=== PATIENT | male | born 1970 | race Caucasian/White ===

== ENCOUNTER 2017-01-01 15:07 | Inpatient (IN) | payer OTHER ==
[2017-01-01] MEDS ORDERED: SODIUM CHLORIDE 1,000 ML IV SCH ×2 (15:30→19:30)
--- NOTE | 2017-01-01 15:35 | PDOC ---
History of Present Illness - General History Source: Patient Exam Limitations: No Limitations - History of Present Illness Initial Comments: 01/01/17 15:43 The patient is a 46 year old male with history of hypertension, atrial fibrillation s/p b/l renal infarct in February 2016, not on anticoagluants, brought in by EMS for complete right side numbness (head, r arm, r leg) and decreased visual field that began at approximately 2 PM. The patient reports he has only a narrow field of vision, able to see directly in front of him but limited on either side of his visual field. He states his numbness is improved on ED arrival. The patient denies any headache, dizziness or focal weakness. He denies nausea, vomiting, or diaphoresis. The patient was seen immediately by me on ED arrival. Seen by Dr. Pham of cardiology in the past. <Christine Barron - Last Filed: 01/01/17 17:57> <Mookie Argueta - Last Filed: 01/05/17 14:31> - General Chief Complaint: CVA/TIA Stated Complaint: NUMBNESS Time Seen by Provider: 01/01/17 15:29 Past History <Christine Barron - Last Filed: 01/01/17 17:57> - Past Medical History Anemia: No Asthma: No Cancer: No Cardiac Disorders: Yes (A FIB) CVA: No COPD: No CHF: No Dementia: No Diabetes: No GI Disorders: No Disorders: No HTN: No Hypercholesterolemia: Yes Liver Disease: No Seizures: No Thyroid Disease: No - Psycho/Social/Smoking Cessation Hx Anxiety: No Suicidal Ideation: No Smoking History: Never smoked Hx Alcohol Use: Yes Drug/Substance Use Hx: No Substance Use Type: Alcohol Hx Substance Use Treatment: No <Mookie Argueta - Last Filed: 01/05/17 14:31> - Past Medical History Allergies/Adverse Reactions: Allergies Allergy/AdvReac Type Severity Reaction Status Date / Time No Known Allergies Allergy Verified 01/01/17 15:10 Home Medications: Ambulatory Orders Enoxaparin Sodium [Lovenox] 120 mg SQ HS #7 syringe 01/05/17 Lovastatin 20 mg PO DAILY #30 tablet 01/05/17 Metoprolol Succinate [Toprol XL -] 200 mg PO DAILY #30 tab.sr.24h 01/05/17 Warfarin Na [Coumadin -] 2.5 mg PO DAILY@1800 #30 tablet 01/05/17 Review of Systems - Review of Systems Able to Perform ROS?: Yes Comments:: 01/01/17 15:57 GENERAL/CONSTITUTIONAL: No fever or chills. No weakness. HEAD, EYES, EARS, NOSE AND THROAT: Visual changes (narrow visual field). No ear pain or discharge. No sore throat CARDIOVASCULAR: No chest pain or shortness of breath. RESPIRATORY: No cough, wheezing, or hemoptysis. GASTROINTESTINAL: No nausea, vomiting, diarrhea or constipation. GENITOURINARY: No dysuria, frequency, or change in urination. MUSCULOSKELETAL: No joint or muscle swelling or pain. No neck or back pain. SKIN: No rash NEUROLOGIC: R numbness (face, arm, leg). No headache, vertigo, loss of consciousness, or focal weakness. ENDOCRINE: No increased thirst. No abnormal weight change. HEMATOLOGIC/LYMPHATIC: No anemia, easy bleeding, or history of blood clots. ALLERGIC/IMMUNOLOGIC: No hives or skin allergy. ] <Christine Barron - Last Filed: 01/01/17 17:57> *Physical Exam - Vital Signs Last Vital Signs Temp Pulse Resp BP Pulse Ox 98.7 F 60 20 160/108 100 01/01/17 15:10 01/01/17 15:10 01/01/17 15:10 01/01/17 15:10 01/01/17 15:10 - Physical Exam Comments: 01/01/17 16:03 GENERAL: Awake, alert, and fully oriented, in no acute distress HEAD: No signs of trauma EYES: PERRLA, EOMI, sclera anicteric, conjunctiva clear ENT: Auricles normal inspection, hearing grossly normal, nares patent, oropharynx clear without exudates. Moist mucosa NECK: Normal ROM, supple, no lymphadenopathy, JVD, or masses LUNGS: Breath sounds equal, clear to auscultation bilaterally. No wheezes, and no crackles HEART: Regular rate and rhythm, normal S1 and S2, no murmurs, rubs or gallops ABDOMEN: Soft, nontender, normoactive bowel sounds. No guarding, no rebound. No masses EXTREMITIES: Normal range of motion, no edema. No clubbing or cyanosis. No cords, erythema, or tenderness NEUROLOGICAL: Cranial nerves II through XII grossly intact. Normal speech, normal gait. Able to answer questions correctly. No nystagmus. No pronator drift. 5/5 motor strength x 4 extremities. Sensation throughout. SKIN: Warm, Dry, normal turgor, no rashes or lesions noted. <Christine Barron - Last Filed: 01/01/17 17:57> - Vital Signs Last Vital Signs Temp Pulse Resp BP Pulse Ox 98.7 F 60 20 160/108 100 01/01/17 15:10 01/01/17 15:10 01/01/17 15:10 01/01/17 15:10 01/01/17 15:10 <Mookie Argueta - Last Filed: 01/05/17 14:31> NIH Stroke Scale - Last Known Well Date/Time & Onset Date Last Known Well: 01/01/17 Time Last Known Well: 14:00 - Initial Evaluation Level of consciousness: Alert Ask patient the month and their age: Answers both correctly Ask patient to open & close eyes; make fist and let go: Obeys both correctly Best gaze (horizontal eye movement): Normal Visual field testing: Complete hemianopia Facial paresis (Show teeth/raise eyebrows/close eyes tight): Normal symmetrical movement Motor Function: Left Arm: Normal Motor Function: Right Arm: Normal (extends arm 90 (or 45) degrees for 10 seconds without drift Motor Function: Left Leg: Normal (extends leg 30 degrees for 5 seconds without drift) Motor Function: Right Leg: Normal (extends leg 30 degrees for 5 seconds without drift) Limb Ataxia: No ataxia Sensory(Use pinprick test arms,legs,trunk,face/side to side): Normal Best language (Describe picture, name items, read sentences): No Aphasia Dysarthria (read several words): Normal articulation Extinction and Inattention: No abnormality - Total Score NIH Stroke Scale Score: 2 <Mookie Argueta - Last Filed: 01/05/17 14:31> Heart Score/ECG Review #1 01/01/17 16:17 EKG obtained 15:19. Atrial fibrillation with rapid ventricular response with premature ventricular or aberrantly conducted complexes. Vent rate 118 bpm. Nonspecific T wave abnormality. Abnormal EKG. <Christine Barron - Last Filed: 01/01/17 17:57> Critical Care Time/MDM Note Total Critical Care Time: 60 Critical Care Statement: The care of this patient involved high complexity decision making to prevent further life threatening deterioration of the patient 's condition and/or to evalute & treat vital organ system(s) failure or risk of failure. - Medical Decision Making Note: 01/01/17 16:04 Code wooten activated. Case discussed with Dr. Dominguez of neurology, who recommended administering tPa. 01/01/17 16:06 I discussed tPa with the patient, including risks and benefits. I explained that there is a 6% risk of developing an intracranial bleed with tPa. He communicates understanding and elects to proceed. 01/01/17 16:[address], read and reviewed by Dr. Velazco, demonstrates no discrete noncontrast CT abnormality. Negative exam. 01/01/17 17:55 Patient reassessed after starting tPa administration. The patient reports his left eye vision improved after beginning tPa, right visual changes persist. Patient also noted some gum bleeding. <Christine Barron - Last Filed: 01/01/17 17:57> - Medical Decision Making Note: 01/05/17 14:27 Patient was actually see by me on arrival. He spoke only Czech and we needed an sap portal developer to be able to complete the exam and the NIH Stroke Scale Testing. He went to CT after my exam. His NIH Stroke scale was low at 2, and he had rapidly resolving symptoms of Right Arm and Leg numbness. That had actually disappeared by the time the patient got to the ED. As recommendations for TPA are not really clear in this situation, the decision was made by neurology collection agent. We gave the TPA at her direction and the patient gave consent to me for the TPA through our sap portal developer. <Mookie Argueta - Last Filed: 01/05/17 14:31> Discharge Disposition <Christine Barron - Last Filed: 01/01/17 17:57> - Discharge Dispostion Last Admission D/C Date: 02/14/16 Admit: Yes <Mookie Argueta - Last Filed: 01/05/17 14:31> - Diagnosis CVA (cerebral vascular accident) Qualifiers: CVA mechanism: embolism Precerebral and cerebral artery: unspecified cerebral artery Qualified Code(s): I63.40 - Cerebral infarction due to embolism of unspecified cerebral artery - Discharge Dispostion Condition at time of disposition: Stable - Prescriptions - Referrals Attestations - Attestations 01/01/17 16:17 Documentation prepared by Christine Barron, acting as medical esthetician for Mookie Argueta DO. <Christine Barron - Last Filed: 01/01/17 17:57> ED Treatment Course - LABORATORY CBC & Chemistry Diagram: 01/01/17 15:36 01/01/17 15:36 - ADDITIONAL ORDERS Additional order review: Laboratory Results 01/01/17 01/01/17 01/01/17 15:36 15:36 15:13 Sodium 145 Potassium 3.9 Chloride 110 H Carbon Dioxide 24 Anion Gap 11 BUN 16 Creatinine 0.8 D Creat Clearance w eGFR > 60 POC Glucometer 129.25222 Random Glucose 111 H D Calcium 8.5 Total Bilirubin 0.3 D AST 29 D ALT 58 Alkaline Phosphatase 87 Creatine Kinase 252 Troponin I 0.08 H Total Protein 7.4 Albumin 3.9 Triglycerides 174 H D Cholesterol 214 H Total LDL Cholesterol 150 H HDL Cholesterol 50 Urine Color Colorless Urine Appearance Clear Urine pH 6.0 Ur Specific [place] 1.004 Urine Protein Negative Urine Glucose (UA) Negative Urine Ketones Negative Urine Blood Negative Urine Nitrite Negative Urine Bilirubin Negative Urine Urobilinogen Negative Ur Leukocyte Esterase Negative 01/01/17 01/01/17 15:36 15:13 RBC 4.77 MCV 90.2 MCHC 33.2 RDW 13.8 MPV 9.1 Neutrophils % 46.5 Lymphocytes % 36.5 D Monocytes % 11.4 H Eosinophils % 4.6 H Basophils % 1.0 POC Glucometer [id number] <Christine Barron - Last Filed: 01/01/17 17:57> - LABORATORY CBC & Chemistry Diagram: 01/05/17 05:35 01/05/17 05:35 <Mookei Argueta - Last Filed: 01/05/17 14:31>
[2017-01-01 15:49] LABS: EOSINOPHIL 4.6 % (0-4.5); MCHC 33.2 g/dl (32.0-35.9); MEAN CELL VOLUME 90.2 fl (80-96); MEAN PLT VOLUME 9.1 fl (7.5-11.1); NEUTROPHILS 46.5 % (42.8-82.8); PLATELET COUNT 198 K/MM3 (134-434); RDW 13.8 % (11.9-15.9); WHITE BLOOD COUNT 6.1 K/mm3 (4.0-10.0)
[2017-01-01 15:52] LABS: URINE APPEARANCE CLEAR; URINE BILIRUBIN NEGATIVE (NEGATIVE); URINE BLOOD NEGATIVE (NEGATIVE); URINE COLOR COLORLESS; URINE GLUCOSE (UA) NEGATIVE (NEGATIVE); URINE KETONE NEGATIVE (NEGATIVE); URINE LEUK ESTERASE NEGATIVE (NEGATIVE); URINE NITRITE NEGATIVE (NEGATIVE); URINE PROTEIN NEGATIVE (NEGATIVE); URINE UROBILINOGEN NEGATIVE E.U./dl (0.2-1.0)
[2017-01-01 16:02] LABS: INR 1.04 (0.82-1.09); PROTHROMBIN TIME (PATIENT) 11.5 SEC (9.98-11.88)
[2017-01-01] MEDS ORDERED: ALTEPLASE 100 MG VIAL IVPB STA (16:07)
[2017-01-01] MEDS ORDERED: ALTEPLASE 100MG 100 MG IVPB ONE (16:09)
[2017-01-01 16:16] LABS: ALBUMIN 3.9 g/dl (3.4-5.0); ALK PHOS 87 U/L (45-117); ANION GAP 11 (8-16); BILIRUBIN,TOTAL 0.3 mg/dL (0.2-1.0); CALCIUM 8.5 mg/dL (8.5-10.1); CHOLESTEROL 214 mg/dL (50-200); CO2 24 mmol/L (21-32); CREATININE 0.8 mg/dL (0.7-1.3); GLUCOSE,RANDOM 111 mg/dL (74-106); LDL CHOLESTEROL (ONLY SJRH) 150 mg/dL (5-100); SGOT/AST 29 U/L (15-37); SGPT/ALT 58 U/L (12-78); TOT PROT 7.4 g/dl (6.4-8.2); TROPONIN I 0.08 ng/ml (0.00-0.05)
--- NOTE | 2017-01-01 16:46 | CONSULT ---
Consult Consult Specialty:: Neurology Reason for Consultation:: Right side numbness/ vision loss - History of Present Illness History of Present Illness: 46 year old [place] man, history of atrial fibrillation (off coumadin), hypertension, hyperlipidemia, presents to the ED with acute onset of right side numbness and bitemporal vision loss. He is accompanied by his . The patient states at 2 pm noting acute onset of right side numbness and bitemporal vision loss. Shortly after he presented his sensory symptoms resolved but visual symptoms persisted. He denies currently being maintained on any antiplatelet, or anticoagulation, patient was previously on coumadin but stopped coumadin months ago. He denies recent surgery, GI bleed, recent stroke. CT head in ED showed no acute hemorrhage NIHSS 2- vision field loss - Past Medical History Cardio/Vascular: Yes: Hyperlipdemia - Past Surgical History Past Surgical History: Yes: None - Alcohol/Substance Use Hx Alcohol Use: Yes - Smoking History Smoking history: Never smoked Home Medications - Allergies Allergies/Adverse Reactions: Allergies Allergy/AdvReac Type Severity Reaction Status Date / Time No Known Allergies Allergy Verified 01/01/17 15:10 - Home Medications Home Medications: Ambulatory Orders Metoprolol Succinate [Toprol Xl -] 25 mg PO DAILY 01/01/17 Review of Systems - Review of Systems Constitutional: reports: No Symptoms Eyes: reports: Recent Change in Vision HENT: reports: No Symptoms Cardiovascular: reports: No Symptoms Respiratory: reports: No Symptoms Musculoskeletal: reports: No Symptoms Neurological: reports: Numbness Physical Exam Vital Signs: Vital Signs Temperature 98.6 F 01/01/17 16:33 Pulse Rate 103 H 01/01/17 16:33 Respiratory Rate 18 01/01/17 16:33 Blood Pressure 137/99 01/01/17 16:33 O2 Sat by Pulse Oximetry (%) 97 01/01/17 16:33 Constitutional: Yes: No Distress Eyes: Yes: Conjunctiva Clear, EOM Intact HENT: Yes: Atraumatic, Normocephalic Cardiovascular: Yes: S1, S2 Neurological: Yes: Alert, Oriented ...Motor Strength: WNL (no facial droop, EOMI, bitemporal vision loss) Labs: CBC, BMP 01/01/17 15:36 01/01/17 15:36 Assessment/Plan 46 year old [place] man, history of atrial fibrillation (off coumadin), hypertension, presents to the ED with acute onset of right side numbness and bitemporal vision loss. He is accompanied by his . Bitemporal vision loss, right side numbness NIHSS [address] head no acute abnormality Risks and benefits of IV tpa discussed- discussed risk of hemorrhage, patient understanding and would like to proceed with tpa He denies being maintained on antiplatelets or anticoagulation, INR 1.[address] head 24 hours (01/02 4pm) Vitals- every 15 minutes during infusion, post infusion every 15 min x2 hours, then every 30 min x6 hours, then every 1 hr every 24 hours, then every 2 hours while in ICU Blood pressure- keep systolic bp less than 180, diastolic less than 110 MRI brain without contrast Echocardiogram Carotid doppler Speech and swallow eval Bed rest for now- PT/OT eval NO antiplatelets or heparin for 24 hours post TPA LDL 150- will start atorvastatin 80 mg daily, hga1c Admit to ICU for close monitoring
[2017-01-01] MEDS ORDERED: dilTIAZem HCL 30 MG TABLET (FP) ONE (17:48)
[2017-01-01] MEDS ORDERED: ATORVASTATIN CA 80 MG TABLET (FP) ONE (17:48)
[2017-01-01] MEDS ORDERED: dilTIAZem HCL 30 MG TABLET (FP) PO ONE (17:50)
[2017-01-01] MEDS: ATORVASTATIN CA 80 MG TABLET (FP) PO SCH (17:50)
--- NOTE | 2017-01-01 18:51 | PN ---
Teaching Attending Note Name of Resident: Ramona Winston ATTENDING PHYSICIAN STATEMENT I saw and evaluated the patient. I reviewed the resident's note and discussed the case with the resident. I agree with the resident's findings and plan as documented. SUBJECTIVE:46 yo M c/o sudden tunnel vision at 1400 today while eating lunch. assoc with R sided numnbness/weakness which resolved by the time he arrived at the hospital. states he continues to have tunnel vision. as per pt was previously on coumadin but stopped last year due to bleeding gums. had 2 failed cardioversions in the past per pt. currently only on betablocker. was not told anything about antiplatlet therapy. denies CP, SOB, fever, chills, N/V/C/D OBJECTIVE: Last Vital Signs Temp Pulse Resp BP Pulse Ox 97.7 F 104 H 21 153/101 95 01/01/17 18:34 01/01/17 18:34 01/01/17 18:34 01/01/17 18:34 01/01/17 18:34 General NAD CV S1 S2 irregular. no murmur/rub/gallop no chest wall tenderness Lungs CTA B/L no wheezing/rales/rhonchi abdomen soft NT/ND obese extremites no pedal edema Neuro visual deficit in B/L temporal lobes, other CN grossly intact, strength equal all 4 extremities ASSESSMENT AND PLAN: 46yo M with PMH afib not on coumadin, dyslipidemia presented to the ER and was admitted for further evaluation of their emergent condition 1. Acute CVA- NIHSS 2. s/p TPA in the ER and 1615. frequent neurochecks, no fingersticks or blood draws for the next 24H. MRI brain in the AM. carotid doppler. continuous cardiac monitoring. neuro on board. any change in mental status will warrant emergent CT. maintain BP <180/110. hold oral hypotensives for now. start statin. speech and swallow, PT eval. elevate head of bed aspiration precautions. 2. afib- not on anticoagulation due to bleeding gums? will call PMD if alternate reason why it was held. pt is high risk for recurrent CVA. would benefit from anticaogulation. 3. DVT ppx- s/p TPA In the ER The care of this patient involved high complexity decision making to prevent further life threatening deterioration of the patient's condition and/or to evaluate & treat vital organ system(s) failure or risk of failure. critical care time 40 minutes
[2017-01-01 18:57] VITALS: BMI 29.4
--- NOTE | 2017-01-01 19:11 | HP ---
CHIEF COMPLAINT: PCP: Seen by Dr. Pham of cardiology in the past. HISTORY OF PRESENT ILLNESS: 46YM with significant PMH history of smoking, hypertension, HLD, atrial Uncontrolled A fib/A flutter cardioversion failed x2, started on amiodarone, verapamil, Coumadin,asa, currently has not taken any of the medication other than Metoprolol, s/p b/l renal infarct in February 2016, not on anticoagluants, brought in by EMS for complete right side numbness (head, r arm, r leg) and decreased visual field that began at approximately 2 PM. patient reports sitting down and eating seafood and a glass of wine while suddenly, progressive tunnel vision bilateral eyes, and Right side of body numbness. no Exacerbating/ alleviating factors. no focal weakness, speech changes, blurred or double vision vision, , fevers, vomiting, no recent trauma. The patient denies any headache, dizziness or focal weakness. To note: patient reports all his medications including asa and Coumadin discontinued by his PCP for gum bleeding and his INR was 13. the only medication he is currently on is metoprolol To note: His HR at home is normally 40's to 180's ER course was notable for: (1)He denies nausea, vomiting, or diaphoresis. The patient was seen immediately by me on ED arrival. He states his numbness is improved on ED arrival. (2)Neuro consulted and Given TPA. 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 Alcohol: 2-5 beers daily 3 times a week Drugs: denies Family History: Allergies No Known Allergies Allergy (Verified 01/01/17 15:10) HOME MEDICATIONS: Home Medications Medication Instructions Recorded Metoprolol Succinate [Toprol Xl -] 25 mg PO DAILY 01/01/17 REVIEW OF SYSTEMS CONSTITUTIONAL: Absent: fever, chills, diaphoresis, generalized weakness, malaise, loss of appetite, weight change HEENT: visual changes Absent: rhinorrhea, nasal congestion, throat pain, throat swelling, difficulty swallowing, mouth swelling, ear pain, eye pain, CARDIOVASCULAR: Absent: chest pain, syncope, palpitations, irregular heart rate, lightheadedness , peripheral edema RESPIRATORY: Absent: cough, shortness of breath, dyspnea with exertion, orthopnea, wheezing, stridor, hemoptysis GASTROINTESTINAL: Absent: abdominal pain, abdominal distension, nausea, vomiting, diarrhea, constipation, melena, hematochezia GENITOURINARY: Absent: dysuria, frequency, urgency, hesitancy, hematuria, flank pain, genital pain MUSCULOSKELETAL: Absent: myalgia, arthralgia, joint swelling, back pain, neck pain SKIN: Absent: rash, itching, pallor HEMATOLOGIC/IMMUNOLOGIC: Absent: easy bleeding, easy bruising, lymphadenopathy, frequent infections ENDOCRINE: Absent: unexplained weight gain, unexplained weight loss, heat intolerance, cold intolerance NEUROLOGIC: Absent: headache, focal weakness or paresthesias, dizziness, unsteady gait, seizure, mental status changes, bladder or bowel incontinence PSYCHIATRIC: Absent: anxiety, depression, suicidal or homicidal ideation, hallucinations. PHYSICAL EXAMINATION Vital Signs - 24 hr 01/01/17 01/01/17 01/01/17 15:10 16:10 16:15 Temperature 98.7 F 98.6 F Pulse Rate 60 112 H Pulse Rate [ 130 H Apical] Respiratory 20 18 18 Rate Blood Pressure 160/108 137/79 Blood Pressure 150/99 [Right Arm] O2 Sat by Pulse 100 100 100 Oximetry (%) 01/01/17 01/01/17 01/01/17 16:20 16:25 16:30 Temperature 98.6 F 98.6 F 98.6 F Pulse Rate Pulse Rate [ 120 H 100 H 103 H Apical] Respiratory 18 18 18 Rate Blood Pressure Blood Pressure 154/98 149/92 137/99 [Right Arm] O2 Sat by Pulse 100 100 97 Oximetry (%) 01/01/17 01/01/17 01/01/17 16:45 16:59 17:15 Temperature 98.6 F 98.6 F Pulse Rate Pulse Rate [ 103 H 100 H 126 H Apical] Respiratory 18 18 18 Rate Blood Pressure Blood Pressure 151/101 136/85 130/79 [Right Arm] O2 Sat by Pulse 100 100 100 Oximetry (%) 01/01/17 01/01/17 17:42 18:07 Temperature Pulse Rate Pulse Rate [ 127 H 117 H Apical] Respiratory 18 18 Rate Blood Pressure Blood Pressure 146/87 139/78 [Right Arm] O2 Sat by Pulse 99 100 Oximetry (%) GENERAL: Awake, alert, and fully oriented, in no acute distress. HEAD: Normal with no signs of trauma. EYES: Pupils R>L equal, round and reactive to light, extraocular movements intact, sclera anicteric, conjunctiva clear. No lid lag. bitemporal vision loss ) EARS, NOSE, THROAT: Ears normal, nares patent, oropharynx clear without exudates. Moist mucous membranes. NECK: Normal range of motion, supple without lymphadenopathy, JVD, or masses. LUNGS: Breath sounds equal, clear to auscultation bilaterally. No wheezes, and + LLL crackles. No accessory muscle use. HEART: irregular irregular , normal S1 and S2 without murmur, rub or gallop. ABDOMEN: Soft, nontender, not distended, normoactive bowel sounds, no guarding, no rebound, no masses. No hepatomegaly or splenomegaly. MUSCULOSKELETAL: Normal range of motion at all joints. No bony deformities or tenderness. No CVA tenderness. LOWER EXTREMITIES: 2+ pulses, warm, well-perfused. No calf tenderness. No peripheral edema. NEUROLOGICAL: Cranial nerves II-XII intact. Normal speech. (no facial droop, EOMI), strength 5/5 all ext, neg [place], soft touch sensation equal, PSYCHIATRIC: Cooperative. Good eye contact. Appropriate mood and affect. SKIN: Warm, dry, normal turgor, no rashes or lesions noted. Laboratory Results - last 24 hr 01/01/17 01/01/17 01/01/17 15:13 15:36 15:36 WBC 6.1 RBC 4.77 Hgb 14.3 Hct 43.0 MCV 90.2 MCHC 33.2 RDW 13.8 Plt Count 198 D MPV 9.1 Neutrophils % 46.5 Lymphocytes % 36.5 D Monocytes % 11.4 H Eosinophils % 4.6 H Basophils % 1.0 INR 1.04 D Sodium Potassium Chloride Carbon Dioxide Anion Gap BUN Creatinine Creat Clearance w eGFR POC Glucometer [id number] Random Glucose Calcium Total Bilirubin AST ALT Alkaline Phosphatase Creatine Kinase Creatine Kinase Index CK-MB (CK-2) CK-MB (CK-2) Rel Index Troponin I Total Protein Albumin Triglycerides Cholesterol Total LDL Cholesterol HDL Cholesterol Urine Color Urine Appearance Urine pH Ur Specific Widen Urine Protein Urine Glucose (UA) Urine Ketones Urine Blood Urine Nitrite Urine Bilirubin Urine Urobilinogen Ur Leukocyte Esterase Blood Type Antibody Screen 01/01/17 01/01/17 01/01/17 15:36 15:36 15:36 WBC RBC Hgb Hct MCV MCHC RDW Plt Count MPV Neutrophils % Lymphocytes % Monocytes % Eosinophils % Basophils % INR Sodium 145 Potassium 3.9 Chloride 110 H Carbon Dioxide 24 Anion Gap 11 BUN 16 Creatinine 0.8 D Creat Clearance w eGFR > 60 POC Glucometer Random Glucose 111 H D Calcium 8.5 Total Bilirubin 0.3 D AST 29 D ALT 58 Alkaline Phosphatase 87 Creatine Kinase 252 Creatine Kinase Index 0.6 CK-MB (CK-2) 1.608 CK-MB (CK-2) Rel Index Troponin I 0.08 H Total Protein 7.4 Albumin 3.9 Triglycerides 174 H D Cholesterol 214 H Total LDL Cholesterol 150 H HDL Cholesterol 50 Urine Color Colorless Urine Appearance Clear Urine pH 6.0 Ur Specific Widen 1.004 Urine Protein Negative Urine Glucose (UA) Negative Urine Ketones Negative Urine Blood Negative Urine Nitrite Negative Urine Bilirubin Negative Urine Urobilinogen Negative Ur Leukocyte Esterase Negative Blood Type A POSITIVE Antibody Screen Negative 01/01/17 15:36 WBC RBC Hgb Hct MCV MCHC RDW Plt Count MPV Neutrophils % Lymphocytes % Monocytes % Eosinophils % Basophils % INR Sodium Potassium Chloride Carbon Dioxide Anion Gap BUN Creatinine Creat Clearance w eGFR POC Glucometer Random Glucose Calcium Total Bilirubin AST ALT Alkaline Phosphatase Creatine Kinase Creatine Kinase Index CK-MB (CK-2) CK-MB (CK-2) Rel Index Cancelled Troponin I Total Protein Albumin Triglycerides Cholesterol Total LDL Cholesterol HDL Cholesterol Urine Color Urine Appearance Urine pH Ur Specific Widen Urine Protein Urine Glucose (UA) Urine Ketones Urine Blood Urine Nitrite Urine Bilirubin Urine Urobilinogen Ur Leukocyte Esterase Blood Type Antibody Screen CT head in ED showed no acute hemorrhage NIHSS 2- vision field loss ASSESSMENT/PLAN: 46YM with significant PMH history of smoking, hypertension, HLD, atrial Uncontrolled A fib/A flutter cardioversion failed x2, started off of (coumadin and asa) brought in by EMS for complete right side numbness (head, r arm, r leg ) and bitemporal vision loss.began at approximately 2 PM. s/p IV tpa discussed Bitemporal vision loss, right side numbness, possibly secondary to embolic stroke, CT head no acute abnormality -NIHSS 2 for vision field loss -IV tpa given (4:15pm) -CT head 24 hours (01/02 4pm) -neuro check q1h for 24 hours. -VS check Q1H: any change in mental status, sudden onset KERN, focal neurlogical deficit will warrant emergent CT and neuro surgery consulted. -Blood pressure- keep systolic bp less than 180, diastolic less than 110 -MRI brain without contrast -Echocardiogram ordered -Carotid doppler ordered -Speech and swallow eval -Bed rest for now- PT/OT eval tomorrow -NO antiplatelets or heparin for 24 hours post TPA -No needle stick or lab draws for at lease 24 hours AFIB: on home Metoprolol Succinate [Toprol Xl -] 25 mg PO DAILY not currently on anticoagulation and ASA patient is at high risk for another CVA/TIA, will consider paln of anicoag once we attain more information from PCP and patient stable eccho am HLD:LDL 150- -start atorvastatin 80 mg daily, DM: -f/u hga1c FEN nutrition na diet pending swallow eval, aspiration precautions. fluids NS IV 42cc/hr electrolyte replete as needed once it is safe to draw labs. DVT prof: SCD, NO sub Q heparin Admit to ICU for close monitoring Visit type - Emergency Visit Emergency Visit: Yes ED Registration Date: 01/01/17 Care time: The patient presented to the Emergency Department on the above date and was hospitalized for further evaluation of their emergent condition. - New Patient This patient is new to me today: Yes Date on this admission: 01/01/17 - Critical Care Critical Care patient: Yes Total Critical Care Time (in minutes): 45 Critical Care Statement: The care of this patient involved high complexity decision making to prevent further life threatening deterioration of the patient 's condition and/or to evalute & treat vital organ system(s) failure or risk of failure.
--- NOTE | 2017-01-01 20:31 | CONSULT ---
Consult Consult Specialty:: Pulm/CC - History of Present Illness History of Present Illness: Pt is a 46yr old man with PMHx of HTN, cardiac arrhythmia (presumably a-fib, not on a/c), . He presents to the ER today with CC of vision loss, the second time in approximately two weeks. Pt denies associated numbess/tingling/limb weakness, chest pain/headache/fatigue/n/v. Pt endorses associated heart palpitations. Pt now in the ICU s/p tpa ~1600 on 01/01 for further management. Upon assessment pt is alert, talkative without focal deficits. 126/109, 99% on 2LNC, HR 70s irregular RR 22. - History Source History Provided By: Patient, Medical Record Limitations to Obtaining History: No Limitations - Past Medical History Cardio/Vascular: Yes: Hyperlipdemia - Past Surgical History Past Surgical History: Yes: None - Alcohol/Substance Use Hx Alcohol Use: Yes - Smoking History Smoking history: Never smoked Have you smoked in the past 12 months: No Home Medications - Allergies Allergies/Adverse Reactions: Allergies Allergy/AdvReac Type Severity Reaction Status Date / Time No Known Allergies Allergy Verified 01/01/17 15:10 - Home Medications Home Medications: Ambulatory Orders Metoprolol Succinate [Toprol Xl -] 25 mg PO DAILY 01/01/17 Review of Systems - Review of Systems Eyes: reports: Recent Change in Vision Cardiovascular: reports: Palpitations. denies: Chest Pain, Edema, Shortness of Breath Respiratory: denies: Cough, SOB Gastrointestinal: denies: Abdominal Pain, Diarrhea Genitourinary: denies: Dysuria Neurological: denies: Dizziness, Headache, Numbness Physical Exam Vital Signs: Vital Signs Period Temp Pulse Resp BP Sys/Grayson Pulse Ox Last 24 Hr 97.7 F-98.7 F 60-130 18-22 130-162/78-108 95-100 Intake & Output 12/29/16 12/30/16 12/31/16 01/01/17 23:59 23:59 23:59 23:59 Output Total 950 Balance -950 Weight 187 lb 12.8 oz Constitutional: Yes: Well Nourished, No Distress, Calm Eyes: Yes: WNL, PERRL HENT: Yes: WNL Neck: Yes: WNL Cardiovascular: Yes: Pulse Irregular (70s), S1, S2 Respiratory: Yes: Diminished (at bases bilaterally), On Nasal O2. No: Rhonchi, SOB, Wheezes Gastrointestinal: Yes: Normal Bowel Sounds, Soft, Abdomen, Obese ...Rectal Exam: Yes: Deferred Renal/: Yes: Other (denies dysuria). No: CVA Tenderness - Left, CVA Tenderness - Right Musculoskeletal: Yes: WNL Extremities: Yes: WNL Edema: No Peripheral Pulses WNL: Yes (+2 bilateral pedal pulses) Neurological: Yes: WNL Psychiatric: Yes: WNL Labs: Abnormal Lab Results 01/01/17 01/01/17 15:36 15:36 Monocytes % 11.4 H Eosinophils % 4.6 H Chloride 110 H Random Glucose 111 H D Troponin I 0.08 H Triglycerides 174 H D Cholesterol 214 H Total LDL Cholesterol 150 H Imaging - Results Chest X-ray: Image Reviewed Cat Scan: Report Reviewed Assessment/Plan Pt is a 46yr old man with PMHx of HTN, cardiac arrhythmia (presumably a-fib, not on a/c). Now in the ICU s/p tPA after acute vision changes. Pulm: -O2 support prn for sat >94% -Incentive spirometer ID -f/u flu swab -Monitor off antibiotics for now Neuro -Neuro following -Neuro checks -f/u head CT at 1600 on 01/02, head MRI, carotid doppler Cardio -Consult -BP/rate control (SBP <180, DBP <110) -f/u enzymes -Continue statin -f/u ECHO Renal -Replete electrolytes prn Prophylactic -Bleeding precautions -SCDs -Fall precautions
[2017-01-01 21:35] LABS: MAGNESIUM 2.1 mg/dL (1.8-2.4); PHOSPHOROUS 3.3 mg/dL (2.5-4.9)
[2017-01-01 21:37] LABS: TROPONIN I 0.08 ng/ml (0.00-0.05)
[2017-01-01] MEDS ORDERED: LISINOPRIL 5 MG TABLET (FP) PO ONE (22:05)
[2017-01-02] MEDS ORDERED: METOPROLOL TARTRATE 25 MG TABLET (FP) PO PRN (00:46)
[2017-01-02 06:03] LABS: BASOPHIL 0.4 % (0-2.0); EOSINOPHIL 3.3 % (0-4.5); MCH 30.2 pg (25.7-33.7); MCHC 33.8 g/dl (32.0-35.9); MEAN CELL VOLUME 89.4 fl (80-96); MEAN PLT VOLUME 9.2 fl (7.5-11.1); NEUTROPHILS 55.9 % (42.8-82.8); PLATELET COUNT 224 K/MM3 (134-434); RDW 14.1 % (11.9-15.9); WHITE BLOOD COUNT 7.4 K/mm3 (4.0-10.0)
[2017-01-02 06:20] LABS: INR 1.14 (0.82-1.09); PROTHROMBIN TIME (PATIENT) 12.6 SEC (9.98-11.88)
[2017-01-02 06:23] LABS: ACTIVATED PTT 31.6 SECONDS (26.9-34.4)
[2017-01-02 06:30] LABS: ALBUMIN 3.7 g/dl (3.4-5.0); ANION GAP 8 (8-16); CALCIUM 8.8 mg/dL (8.5-10.1); CO2 28 mmol/L (21-32); GLUCOSE,RANDOM 86 mg/dL (74-106); MAGNESIUM 2.2 mg/dL (1.8-2.4)
[2017-01-02 06:35] LABS: ALK PHOS 80 U/L (45-117); BILIRUBIN,TOTAL 0.6 mg/dL (0.2-1.0); PHOSPHOROUS 3.4 mg/dL (2.5-4.9); SGOT/AST 20 U/L (15-37); SGPT/ALT 51 U/L (12-78); TOT PROT 7.3 g/dl (6.4-8.2)
[2017-01-02] MEDS ORDERED: METOPROLOL SUCCINATE 25 MG TAB.SR.24H (FP) PO SCH (10:00)
--- NOTE | 2017-01-02 10:00 | CONSULT ---
Admitting History and Physical - Primary Care Physician PCP: Diana Card - Admission History of Present Illness: Per EMR: "46YM with significant PMH history of smoking, hypertension, HLD, atrial Uncontrolled A fib/A flutter cardioversion failed x2, started off of ( coumadin and asa) brought in by EMS for complete right side numbness (head, r arm, r leg) and bitemporal vision loss.began at approximately 2 PM. s/p IV tpa " Denies speech/swallow symptoms or ue/le weakness. Isolated visual deficits that improved after TPA. History Source: Patient Limitations to Obtaining History: No Limitations, Language Barrier (Fair Tajik and used audio/video technician as well.) - Past Medical History Cardiovascular: Yes: Hyperlipdemia - Past Surgical History Past Surgical History: Yes: None - Smoking History Smoking history: Never smoked Have you smoked in the past 12 months: No - Alcohol/Substance Use Hx Alcohol Use: Yes History - Admission Reason For Visit: CVA - Diagnostics CT Scan: Report Reviewed MRI: Pending - General Mental Status: Alert and Oriented, Awake and Alert, Able to Follow Commands Attention: Intact Ability to Follow Directions: Excellent Head/Neck Control: WFL - Hearing Hearing: Normal Hearing Aide: No With Patient: No Speech Evaluation - Communication Primary Language: [id number] Communication: Yes: Within Normal Limits Oral Expression Ability: Yes: No Impairment - Speech Production Able to Make Needs Known: Yes: WNL Intelligibility: Yes: WNL - Speech Characteristics Voice Loudness: Normal Voice Pitch: Yes: Normal Voice Phonatory-based Quality: Yes: Normal Speech Pattern: Normal Speech Clarity: < 100% Nasal Resonance: Normal Articulation: Yes: Precise Rate of Speech: Intact - Language/Auditory Comprehension Follows: Yes: 2 Stage Simple Commands - Language/Verbal Expression Able to Respond to Simple Queries: Yes: WNL Able to Communicate Wants and Needs: Yes: WNL Functional Communication Status: Yes: WNL - Memory/Perception buttermaker helper Memory: Yes: WNL Short Term Memory: Yes: WNL - Swallow Evaluation/Bedside Assessment Current Nutritional Intake: NPO (however, drinking water from a straw in pitcher.) Oral Secretions: Yes: WFL Dentition: Yes: Adequate Facial Symmetry at Rest: Symmetrical Facial Symmetry on Retraction: Symmetrical Facial Movement: Controlled Sensation: Normal Against Resistance Opening: Normal Against Resistance Closing: Normal Pucker Lips: Normal Smile: Normal Lingual Movement: Normal Lingual Speed of Movement: Normal Lingual Movement Strgth Against Opposition: Normal Lingual Movement Characteristics: Normal Velopharyngeal Movement: Normal Laryngeal Elevation: WFL Laryngeal Movement: Able to Palpate Rate of Intake: WFL Bolus Size: WFL Labial Seal: WFL Chewing: WFL Oral Prep Time: WFL A-P Transit: WFL Pocketing: None Coughing/Throat Clear: No Change in Voice: No Recommendations - Speech Evaluation, Impression/Plan Impression: Speech,swallow, cognition intact - Dysphagia Impressions/Plan Swallowing Skills: [facility] Dysphagia Impressions: No Impairment *Silent aspiration: cannot be R/O at bedside - Recommendations Diet Consistency: Regular Medication Administration: Whole with water Liquids: Thin Liquids
--- NOTE | 2017-01-02 11:46 | PN ---
Teaching Attending Note Name of Resident: Casper Sultana ATTENDING PHYSICIAN STATEMENT I saw and evaluated the patient. I reviewed the resident's note and discussed the case with the resident. I agree with the resident's findings and plan as documented. SUBJECTIVE: Patient seen and examined in the ICU. Awake and alert. Neuro exam seems intact. Rate controlled AFIb. No CP or SOB No bleeding. For MRI Intake & Output 12/30/16 12/31/16 01/01/17 01/02/17 23:59 23:59 23:59 23:59 Intake Total 250 200 Output Total 1750 600 Balance -1500 -400 Weight 187 lb 12.8 oz 185 lb 5 oz Last Vital Signs Temp Pulse Resp BP Pulse Ox 98 F 80 21 136/86 100 01/02/17 06:00 01/02/17 08:00 01/02/17 08:00 01/02/17 08:00 01/01/17 21:50 Active Medications Atorvastatin Calcium (Lipitor -) 80 mg PO HS [facility] Last Admin: 01/01/17 17:50 Dose: 80 mg Metoprolol Succinate (Toprol Xl -) 25 mg PO DAILY [facility] Last Admin: 01/02/17 11:14 Dose: 25 mg Constitutional: Yes: Well Nourished, No Distress, Calm Eyes: Yes: WNL, PERRL HENT: Yes: WNL Neck: Yes: WNL Cardiovascular: Yes: Pulse Irregular (70s), S1, S2 Respiratory: Yes: Diminished (at bases bilaterally), On Nasal O2. No: Rhonchi, SOB, Wheezes Gastrointestinal: Yes: Normal Bowel Sounds, Soft, Abdomen, Obese ...Rectal Exam: Yes: Deferred Renal/: Yes: Other (denies dysuria). No: CVA Tenderness - Left, CVA Tenderness - Right Musculoskeletal: Yes: WNL Extremities: Yes: WNL Edema: No Peripheral Pulses WNL: Yes (+2 bilateral pedal pulses) Neurological: Yes: WNL Psychiatric: Yes: WNL Labs: Assessment/Plan Acute CVA AFib recently not on AC HTN S/P tPA BP monitoring Cardiology / Neuro evaluation Incentive spirometer O2 as needed Carotid doppler MRI Telemetry monitoring Dr Roy CCTime 35"
--- NOTE | 2017-01-02 11:47 | PN ---
Teaching Attending Note Name of Resident: Ramona Winston ATTENDING PHYSICIAN STATEMENT I saw and evaluated the patient. I reviewed the resident's note and discussed the case with the resident. I agree with the resident's findings and plan as documented. SUBJECTIVE:states his vision has improved. hap episode of palpitations in the evening that self resolved. denies CP, SOB,fever, chills, N/V/C/D. no longer has R sided numbness. OBJECTIVE: Last Vital Signs Temp Pulse Resp BP Pulse Ox 98 F 80 21 136/86 100 01/02/17 06:00 01/02/17 08:00 01/02/17 08:00 01/02/17 08:00 01/01/17 21:50 General NAD CV S1 S2 irregular. no murmur/rub/gallop Lungs CTA B/L no wheezing/rales/rhonchi abdomen soft NT/ND obese extremites no pedal edema Neuro visual deficit in B/L temporal lobes, other CN grossly intact, strength and sensation equal all 4 extremities, normal dysmetria ASSESSMENT AND PLAN: 46yo M with PMH afib not on coumadin, dyslipidemia presented to the ER and was admitted for further evaluation of their emergent condition 1. Acute CVA- NIHSS 2. s/p TPA yesterday. improvement in visual dougherty. no other deficits. MRI brain, echo and carotid dopplers pending. speech and swallow and PT. eval. bedrest for 24H. on statin. neuro on board 2. afib- not on anticoagulation due to bleeding gums? rate mostly controlled. several episodes of RVR in the evening. will re-start metoprolol. will need to call PMD to ascertain if other reason coumadin was held. pt requires some anticoagulation due to high risks. [id number] 2. hold for now 3. DVT ppx- s/p TPA In the ER 4. stable for transfer to tele after 24H of TPA The care of this patient involved high complexity decision making to prevent further life threatening deterioration of the patient's condition and/or to evaluate & treat vital organ system(s) failure or risk of failure. critical care time 35 minutes
--- NOTE | 2017-01-02 12:24 | EKG ---
Test Reason : Blood Pressure : / mmHG Vent. Rate : 118 BPM Atrial Rate : 416 BPM P-R Int : 000 ms QRS Dur : 084 ms QT Int : 296 ms P-R-T Axes : 000 003 -06 degrees QTc Int : 414 ms ATRIAL FIBRILLATION WITH RAPID VENTRICULAR RESPONSE WITH PREMATURE VENTRICULAR OR ABERRANTLY CONDUCTED COMPLEXES NONSPECIFIC T WAVE ABNORMALITY ABNORMAL ECG WHEN COMPARED WITH ECG OF 07-FEB-2016 17:44, ATRIAL FIBRILLATION HAS REPLACED ATRIAL FLUTTER PREMATURE VENTRICULAR COMPLEXES NOW SEEN Confirmed by CHARLEEN BHAKTA MD ([id number]) on 01/02/2017 12:24:22 PM Referred By: Confirmed By:CHARLEEN BHAKTA MD
[2017-01-02] MEDS ORDERED: METOPROLOL TARTRATE 5 MG/5 ML VIAL ONE (13:10)
[2017-01-02] MEDS: METOPROLOL TARTRATE 5 MG/5 ML VIAL IVPUSH PRN ×3 (13:17→23:29)
--- NOTE | 2017-01-02 13:17 | PN ---
[id number] 46 year old tamazight speaking male patient, history of atrial fibrillation (off coumadin), hypertension, hyperlipidemia, presented yesterday to the ED with acute onset of right side numbness and bitemporal vision loss. The patient complained of acute onset of right side numbness and bitemporal vision loss. Shortly after he presented his sensory symptoms resolved but visual symptoms persisted. He denies currently being maintained on any antiplatelet, or anticoagulation. 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 On Xarelto the patient presented gum bleedings and Xarelto was stopped also. Since February 2016 he is not on asa, plavix, coumadin or NOAC. He denies recent surgery, GI bleed, recent stroke. - Current Medication List Current Medications: Active Medications Atorvastatin Calcium (Lipitor -) 80 mg PO HS [facility] Last Admin: 01/01/17 17:50 Dose: 80 mg Metoprolol Succinate (Toprol Xl -) 25 mg PO DAILY [facility] Last Admin: 01/02/17 11:14 Dose: 25 mg Metoprolol Tartrate (Lopressor Injection -) 5 mg IVPUSH Q4H PRN PRN Reason: HYPERTENSION - Objective Vital Signs: Vital Signs Temperature 99.2 F 01/02/17 10:00 Pulse Rate 110 H 01/02/17 12:00 Respiratory Rate 15 01/02/17 12:00 Blood Pressure 141/84 01/02/17 12:00 O2 Sat by Pulse Oximetry (%) 100 01/01/17 21:50 Constitutional: Yes: Well Nourished, No Distress, Calm Eyes: Yes: WNL, Conjunctiva Clear, EOM Intact, PERRL HENT: Yes: WNL, Atraumatic, Normocephalic Neck: Yes: WNL, Supple, Trachea Midline Cardiovascular: Yes: WNL, Regular Rate and Rhythm, Tachycardia, Pulse Irregular , S1, S2 Respiratory: Yes: Regular, CTA Bilaterally Gastrointestinal: Yes: Normal Bowel Sounds, Soft Genitourinary: Yes: WNL Breast(s): Yes: WNL Musculoskeletal: Yes: WNL Extremities: Yes: WNL Edema: No Peripheral Pulses WNL: Yes Peripheral Pulses: Left Radial: 1+, Right Radial: 1+ Neurological: Yes: Alert, Oriented, Babinski negative, Cran Nerves II-XII Intact , Other (left temporal superior visual field cut. NIHS is 1p. for VF cut.) ...Motor Strength: WNL Psychiatric: Yes: WNL, Alert, Oriented Labs: CBC, BMP 01/02/17 05:00 01/02/17 05:00 INR, PTT INR 1.14 (0.82-1.09) 01/02/17 05:00 Problem List - Problems (1) Visual field defect Code(s): H53.40 - UNSPECIFIED VISUAL FIELD DEFECTS (2) CVA (cerebral vascular accident) Code(s): I63.9 - CEREBRAL INFARCTION, UNSPECIFIED Qualifiers: CVA mechanism: embolism Precerebral and cerebral artery: unspecified cerebral artery Qualified Code(s): I63.40 - Cerebral infarction due to embolism of unspecified cerebral artery (3) Atrial fibrillation Code(s): I48.91 - UNSPECIFIED ATRIAL FIBRILLATION Qualifiers: Atrial fibrillation type: persistent Qualified Code(s): I48.1 - Persistent atrial fibrillation Assessment/Plan 46 year old man, history of atrial fibrillation (off coumadin), hypertension, hyperlipidemia, presented yesterday to the ED with acute onset of right side numbness and bitemporal vision loss. The patient complained of acute onset of right side numbness and bitemporal vision loss. Shortly after he presented his sensory symptoms resolved but visual symptoms persisted. He denies currently being maintained on any antiplatelet, or anticoagulation. 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 On Xarelto the patient presented gum bleedings and Xarelto was stopped also. Since February 2016 he is not on asa, plavix, coumadin or NOAC. He denies recent surgery, GI bleed, recent stroke. 46y. male patient, tamazight speaking with pmh. AF not on on AC, not on ASA, not on Plavix presents for sudden right side numbness and visual field cut. He received tpa iv. yesterday. Impression acute ischemic stroke, most likely embolic , due to AFibrillation. post ivtpa. NIHS is 1p. for 1p visual field cut. left. Plan: - cardiology consult for AFIB. - this patient needs to be on NOAC or coumadin if MRI brain shows acute embolic stroke. It is not very clear from the history why he was not on asa and plavix at least . - continues statin, beta orion , SBP under 130mmHg. -stroke work up : doppler carotids, MRI brain, echocardiogram, lipids profile, HbA1C. - DVT prophylaxis- heparin sq. - PT/OT/ST - will follow up Critical Care Time spent in ICU 45min.
--- NOTE | 2017-01-02 15:49 | PN ---
Physical Exam: SUBJECTIVE: Patient seen and examined at bedside in the ICU. He reported feeling better and regained all his strength on the R ride which was the weak side on admission. Vision also came back. He denies n/v, fever, chills, chest pain, sob, abd pain, facial droop, sensation decrease, focal weakness, bowel or urinary sx. OBJECTIVE: Vital Signs Period Temp Pulse Resp BP Sys/Grayson Pulse Ox Last 24 Hr 97.7 F-99.2 F 68-117 15-27 111-162/66-110 95-100 GENERAL: The patient is awake, alert, and fully oriented, in no acute distress. HEAD: Normal with no signs of trauma. EYES: PERRLA LUNGS: Breath sounds equal, clear to auscultation bilaterally, no wheezes, no crackles, no accessory muscle use. HEART: Regular rate and rhythm, S1, S2 without murmur, rub or gallop. ABDOMEN: Soft, nontender, nondistended, normoactive bowel sounds, no guarding, no rebound, no hepatosplenomegaly, no masses. EXTREMITIES: no edema. NEUROLOGICAL: Cranial nerves II through XII grossly intact. Normal speech. 5/5 Strength in all extremities with intact sensation PSYCH: Normal mood, normal affect. SKIN: Warm, dry, normal turgor, no rashes or lesions noted CBCD WBC 7.4 K/mm3 (4.0-10.0) 01/02/17 05:00 RBC 5.10 M/mm3 (4.00-5.60) 01/02/17 05:00 Hgb 15.4 GM/dL (11.7-16.9) 01/02/17 05:00 Hct 45.6 % (35.4-49) 01/02/17 05:00 MCV 89.4 fl (80-96) 01/02/17 05:00 MCHC 33.8 g/dl (32.0-35.9) 01/02/17 05:00 RDW 14.1 % (11.9-15.9) 01/02/17 05:00 Plt Count 224 K/MM3 (134-434) 01/02/17 05:00 MPV 9.2 fl (7.5-11.1) 01/02/17 05:00 CMP Sodium 144 mmol/L (136-145) 01/02/17 05:00 Potassium 3.7 mmol/L (3.5-5.1) 01/02/17 05:00 Chloride 108 mmol/L (98-107) H 01/02/17 05:00 Carbon Dioxide 28 mmol/L (21-32) 01/02/17 05:00 Anion Gap 8 (8-16) 01/02/17 05:00 BUN 15 mg/dL (7-18) 01/02/17 05:00 Creatinine 1.0 mg/dL (0.7-1.3) D 01/02/17 05:00 Creat Clearance w eGFR > 60 (>60) 01/02/17 05:00 Calcium 8.8 mg/dL (8.5-10.1) 01/02/17 05:00 Total Bilirubin 0.6 mg/dL (0.2-1.0) D 01/02/17 05:00 AST 20 U/L (15-37) D 01/02/17 05:00 ALT 51 U/L (12-78) 01/02/17 05:00 Alkaline Phosphatase 80 U/L (45-117) 01/02/17 05:00 Total Protein 7.3 g/dl (6.4-8.2) 01/02/17 05:00 Albumin 3.7 g/dl (3.4-5.0) 01/02/17 05:00 Intake & Output 12/30/16 12/31/16 01/01/17 01/02/17 23:59 23:59 23:59 23:59 Intake Total 250 600 Output Total 1750 600 Balance -1500 0 Weight 85.185 kg 84.056 kg Active Medications Generic Name Dose Route Start Last Admin Trade Name Freq PRN Reason Stop Dose Admin Atorvastatin Calcium 80 mg 01/01/17 17:30 01/01/17 17:50 Lipitor - PO 80 mg HS DELFINA Administration Metoprolol Succinate 25 mg 01/02/17 10:00 01/02/17 11:14 Toprol Xl - PO 25 mg DAILY DELFINA Administration Metoprolol Tartrate 5 mg 01/02/17 13:08 01/02/17 13:17 Lopressor Injection - IVPUSH 5 mg Q4H PRN Administration HYPERTENSION Imaging ECHO on 01/02: reduced LV function, EF 52% CXR on 01/01: No acute pathology CT head: negative for bleed ASSESSMENT/PLAN: 46 yo M h/o HTN, a-fib not currently on AC admitted to the ICU for TIA s/p tPA. Pt was on AC for afib but came off it due to INR being supratherapuetic and gum bleeding about 8 months ago. Neuro: TIA s/p tPA - f/u MRI and repeat CT, carotid doppler - No sign of bleed - Keep HOB 30-45% - LDL not at goal - Cont. atorvastatin 80mg HS Cardiac: Afib with controlled rate - [id number] = 2 - On lopressor 25mg PO - long term acute care registered nurse AC held due to supratherapuetic INR FEN - Fluid not indicated - Lytes normal - Sodium controlled regular diet Prophylaxis - DVT: s/p tPA - GI: not indicated Disposition - May transfer to telemetry Code Status - Full Visit type - Emergency Visit Emergency Visit: No - New Patient This patient is new to me today: Yes Date on this admission: 01/02/17 - Critical Care Critical Care patient: Yes Total Critical Care Time (in minutes): 45 Critical Care Statement: The care of this patient involved high complexity decision making to prevent further life threatening deterioration of the patient 's condition and/or to evalute & treat vital organ system(s) failure or risk of failure.
--- NOTE | 2017-01-02 16:10 | PN ---
Physical Exam: SUBJECTIVE: Patient seen and examined at bed side. patient denies any focal neurological deficit. patient Right side numness resolved. patient temporal vision improving. reports cvisual acuity decreased when reading. on physical exam improved visual filed, still decreased Left LUQ acuity. OBJECTIVE: Vital Signs Period Temp Pulse Resp BP Sys/Grayson Pulse Ox Last 24 Hr 97.7 F-99.2 F 68-117 15-27 111-162/66-110 95-100 Yes: Alert, Oriented, Babinski negative, Cran Nerves II-XII Intact, Other (left temporal superior visual field cut. NIHS is 1p. for VF cut. GENERAL: Awake, alert, and fully oriented, in no acute distress. HEAD: Normal with no signs of trauma. EYES: Pupils equal, round and reactive to light, extraocular movements intact, sclera anicteric, conjunctiva clear. No lid lag. bitemporal vision loss) EARS, NOSE, THROAT: Ears normal, nares patent, oropharynx clear without exudates. Moist mucous membranes. NECK: Normal range of motion, supple without lymphadenopathy, JVD, or masses. LUNGS: Breath sounds equal, clear to auscultation bilaterally. No wheezes, and + LLL crackles. No accessory muscle use. HEART: irregular irregular , normal S1 and S2 without murmur, rub or gallop. ABDOMEN: Soft, nontender, not distended, normoactive bowel sounds, no guarding, no rebound, no masses. No hepatomegaly or splenomegaly. MUSCULOSKELETAL: Normal range of motion at all joints. No bony deformities or tenderness. No CVA tenderness. LOWER EXTREMITIES: 2+ pulses, warm, well-perfused. No calf tenderness. No peripheral edema. NEUROLOGICAL: Cranial nerves II-XII intact. Normal speech. (no facial droop, EOMI), strength 5/5 all ext, neg babinski, soft touch sensation equal, decreased Left LUQ visual field. PSYCHIATRIC: Cooperative. Good eye contact. Appropriate mood and affect. SKIN: Warm, dry, normal turgor, no rashes or lesions noted. Laboratory Results - last 24 hr 01/01/17 01/01/17 01/02/17 21:00 21:00 05:00 WBC 7.4 RBC 5.10 Hgb 15.4 Hct 45.6 MCV 89.4 MCHC 33.8 RDW 14.1 Plt Count 224 MPV 9.2 Neutrophils % 55.9 D Lymphocytes % 29.8 Monocytes % 10.6 H Eosinophils % 3.3 Basophils % 0.4 INR PTT (Actin FS) Sodium Potassium Chloride Carbon Dioxide Anion Gap BUN Creatinine Creat Clearance w eGFR Random Glucose Calcium Phosphorus 3.3 D Magnesium 2.1 Total Bilirubin AST ALT Alkaline Phosphatase Creatine Kinase 232 CK-MB (CK-2) Rel Index Cancelled Troponin I 0.08 H Total Protein Albumin 01/02/17 01/02/17 05:00 05:00 WBC RBC Hgb Hct MCV MCHC RDW Plt Count MPV Neutrophils % Lymphocytes % Monocytes % Eosinophils % Basophils % INR 1.14 PTT (Actin FS) 31.6 D Sodium 144 Potassium 3.7 Chloride 108 H Carbon Dioxide 28 Anion Gap 8 BUN 15 Creatinine 1.0 D Creat Clearance w eGFR > 60 Random Glucose 86 D Calcium 8.8 Phosphorus 3.4 Magnesium 2.2 Total Bilirubin 0.6 D AST 20 D ALT 51 Alkaline Phosphatase 80 Creatine Kinase CK-MB (CK-2) Rel Index Troponin I Total Protein 7.3 Albumin 3.7 Active Medications Generic Name Dose Route Start Last Admin Trade Name Freq PRN Reason Stop Dose Admin Atorvastatin Calcium 80 mg 01/01/17 17:30 01/01/17 17:50 Lipitor - PO 80 mg HS DELFINA Administration Metoprolol Succinate 25 mg 01/02/17 10:00 01/02/17 11:14 Toprol Xl - PO 25 mg DAILY DELFINA Administration Metoprolol Tartrate 5 mg 01/02/17 13:08 01/02/17 13:17 Lopressor Injection - IVPUSH 5 mg Q4H PRN Administration HYPERTENSION CT HEAD In comparison to a prior CT study of 01/01/2017 interval development of an acute left posterior temporal cortical infarct inferiorly and an acute right parieto- occipital cortical/subcortical infarct. There is no midline displacement. No extra-axial fluid collection is seen. There is no obvious mass lesion. The ventricles and cisterns appear unremarkable. Impression: No intracranial hemorrhage is identified. Acute left posterior temporal and right parieto- occipital infarct are seen. ASSESSMENT/PLAN: 46YM with significant PMH history of smoking, hypertension, HLD, atrial Uncontrolled A fib/A flutter cardioversion failed x2, started off of (coumadin and asa) brought in by EMS for complete right side numbness (head, r arm, r leg ) and bitemporal vision loss.began at approximately 2 PM. s/p IV tpa Bitemporal vision loss improving to LEFT eye Left LUQ Quadrantanopia , right side (numbness resolved), possibly secondary to embolic stroke, repeat CT: Acute left posterior temporal and right parieto-occipital infarct are seen. -CT: No intracranial hemorrhage is identified. Acute left posterior temporal and right parieto-occipital infarct are seen. -awaiting MRI -awaiting carotid Doppler -NIHSS 1 for vision field loss -IV tpa given ~24 hours ago -neuro check q2h -VS check Q4H: any change in mental status, sudden onset KERN, focal neurlogical deficit will warrant emergent CT and neuro surgery consulted. -Blood pressure- keep systolic bp less than 180, diastolic less than 110 -Echocardiogram no valvular pathology -Speech and swallow eval-done: no impairment -Bed rest for now- PT/OT eval -discussed with Neuro attending and she recomends starting Lovenox after 24 hours if no sign of bleed. discussed case with Dr. al she agred to start ASA and lovenox. CT No intracranial hemorrhage is identified. Acute left posterior temporal and right parieto-occipital infarct are seen. - will start ASA and Lovenox AFIB: [id number] = 2 Metoprolol as above start asa + lovenox eccho no valvular pathology. will rate control concerned with aggressive tight bp control inlight of recent CVA, will reassess HR in am. HLD:LDL 150- -cont atorvastatin 80 mg daily, DM: -f/u hga1c FEN nutrition na diet pending swallow eval, aspiration precautions. fluids NS IV 42cc/hr electrolyte replete as needed once it is safe to draw labs. - PT/OT/ST DVT prof: SCD, lovenox Keep HOB 30-45% despo: transfer to tele Visit type - Emergency Visit Emergency Visit: Yes ED Registration Date: 01/01/17 Care time: The patient presented to the Emergency Department on the above date and was hospitalized for further evaluation of their emergent condition. - New Patient This patient is new to me today: No - Critical Care Critical Care patient: Yes Total Critical Care Time (in minutes): 45 Critical Care Statement: The care of this patient involved high complexity decision making to prevent further life threatening deterioration of the patient 's condition and/or to evalute & treat vital organ system(s) failure or risk of failure.
[2017-01-02] MEDS ORDERED: ASPIRIN COATED 81 MG TABLET.EC PO SCH (19:00)
[2017-01-02] MEDS: ENOXAPARIN NA (PORCINE) 80 MG/0.8 ML DISP.SYRIN SQ SCH ×2 (22:02→22:03)
[2017-01-02] MEDS: ATORVASTATIN CA 80 MG TABLET (FP) PO SCH (22:02)
[2017-01-02] MEDS ORDERED: METOPROLOL TARTRATE 25 MG TABLET (FP) PO ONE (23:32)
[2017-01-03 02:04] LABS: URINE APPEARANCE CLEAR; URINE BILIRUBIN NEGATIVE (NEGATIVE); URINE BLOOD NEGATIVE (NEGATIVE); URINE COLOR LTYELLOW; URINE GLUCOSE (UA) NEGATIVE (NEGATIVE); URINE KETONE NEGATIVE (NEGATIVE); URINE LEUK ESTERASE NEGATIVE (NEGATIVE); URINE NITRITE NEGATIVE (NEGATIVE); URINE PROTEIN NEGATIVE (NEGATIVE); URINE UROBILINOGEN NEGATIVE E.U./dl (0.2-1.0)
[2017-01-03 02:27] LABS: CALCIUM 9.6 mg/dL (8.5-10.1); MAGNESIUM 2.1 mg/dL (1.8-2.4); PHOSPHOROUS 3.8 mg/dL (2.5-4.9)
[2017-01-03 02:30] LABS: TROPONIN I 0.08 ng/ml (0.00-0.05)
[2017-01-03] MEDS ORDERED: POTASSIUM CHLORIDE 40 MEQ/30 ML UNIT DOSE CUP PO ONE (03:46)
[2017-01-03] MEDS ORDERED: POTASSIUM CHLORIDE TABS 20 MEQ TABLET.ER (FP) PO ONE (03:49)
[2017-01-03 06:14] LABS: BASOPHIL 0.7 % (0-2.0); EOSINOPHIL 2.4 % (0-4.5); MCHC 33.7 g/dl (32.0-35.9); MEAN CELL VOLUME 89.2 fl (80-96); MEAN PLT VOLUME 9.4 fl (7.5-11.1); NEUTROPHILS 53.7 % (42.8-82.8); PLATELET COUNT 242 K/MM3 (134-434); RDW 13.8 % (11.9-15.9); WHITE BLOOD COUNT 8.5 K/mm3 (4.0-10.0)
[2017-01-03 06:26] LABS: CALCIUM 9.1 mg/dL (8.5-10.1); CREATININE 1.1 mg/dL (0.7-1.3); PHOSPHOROUS 3.4 mg/dL (2.5-4.9)
[2017-01-03 06:27] LABS: INR 1.24 (0.82-1.09); PROTHROMBIN TIME (PATIENT) 13.7 SEC (9.98-11.88)
[2017-01-03 06:30] LABS: ACTIVATED PTT 39.6 SECONDS (26.9-34.4)
[2017-01-03 06:38] LABS: TROPONIN I 0.07 ng/ml (0.00-0.05)
--- NOTE | 2017-01-03 07:28 | PN ---
<KimDimas carpenter - Last Filed: 01/03/17 16:59> Physical Exam: ATTENDING PHYSICIAN STATEMENT I saw and evaluated the patient. I reviewed the resident's note and discussed the case with the resident. I agree with the resident's findings and plan as documented. 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 admitted for acute B/L CVA CVA -has known history of afib with B/L renal infarcts -was on coumadin in the past but states that coumadin was stopped by fine arts packer when INR was found to be greater than 10 last year -MRI shows B/L infarcts -peripheral vision is improving bilaterally -echo shows no vegetations and no thrombus; will discuss with cardiology if patient would benefit from UCHE as echo had poor windows and this is now the second embolization pt has suffered from -start coumadin with lovenox bridge -cont statin -cont betablocker for rate control of afib <Ramona Winston - Last Filed: 01/05/17 19:00> Physical Exam: SUBJECTIVE: Patient seen and examined at bed side. patient denies any focal neurological deficit. patient temporal vision improving. patient Right side numness resolved. on neuro exam improving visual filed, improving Left LUQ acuity. OBJECTIVE: Vital Signs Period Temp Pulse Resp BP Sys/Grayson Pulse Ox Last 24 Hr 98 F-99.2 F 70-135 15-27 91-141/63-98 100-100 GENERAL: Awake, alert, and fully oriented, in no acute distress. HEAD: Normal with no signs of trauma. EYES: Pupils equal, round and reactive to light, extraocular movements intact, sclera anicteric, conjunctiva clear. No lid lag. bitemporal vision loss) EARS, NOSE, THROAT: Ears normal, nares patent, oropharynx clear without exudates. Moist mucous membranes. NECK: Normal range of motion, supple without lymphadenopathy, JVD, or masses. LUNGS: Breath sounds equal, clear to auscultation bilaterally. No wheezes, and + LLL crackles. No accessory muscle use. HEART: irregular irregular , normal S1 and S2 without murmur, rub or gallop. ABDOMEN: Soft, nontender, not distended, normoactive bowel sounds, no guarding, no rebound, no masses. No hepatomegaly or splenomegaly. MUSCULOSKELETAL: Normal range of motion at all joints. No bony deformities or tenderness. No CVA tenderness. LOWER EXTREMITIES: 2+ pulses, warm, well-perfused. No calf tenderness. No peripheral edema. NEUROLOGICAL: Cranial nerves II-XII intact. Normal speech. (no facial droop, EOMI), strength 5/5 all ext, neg babinski, soft touch sensation equal, decreased Left LUQ visual field improving from yesterday . gait normal, neg Romberg. PSYCHIATRIC: Cooperative. Good eye contact. Appropriate mood and affect. SKIN: Warm, dry, normal turgor, no rashes or lesions noted. Laboratory Results - last 24 hr 01/03/17 01/03/17 01/03/17 01:00 01:00 05:10 WBC RBC Hgb Hct MCV MCHC RDW Plt Count MPV Neutrophils % Lymphocytes % Monocytes % Eosinophils % Basophils % INR 1.24 H PTT (Actin FS) 39.6 H Sodium 140 Potassium 3.5 Chloride 106 Carbon Dioxide 25 Anion Gap 9 BUN 18 Creatinine 1.0 Random Glucose 88 Calcium 9.6 Phosphorus 3.8 Magnesium 2.1 Creatine Kinase 104 Troponin I 0.08 H Urine Color Ltyellow Urine Appearance Clear Urine pH 6.0 Ur Specific [place] 1.020 Urine Protein Negative Urine Glucose (UA) Negative Urine Ketones Negative Urine Blood Negative Urine Nitrite Negative Urine Bilirubin Negative Urine Urobilinogen Negative Ur Leukocyte Esterase Negative 01/03/17 01/03/17 01/03/17 05:10 05:10 05:10 WBC 8.5 RBC 5.29 Hgb 15.9 Hct 47.2 MCV 89.2 MCHC 33.7 RDW 13.8 Plt Count 242 MPV 9.4 Neutrophils % 53.7 Lymphocytes % 32.7 Monocytes % 10.5 H Eosinophils % 2.4 Basophils % 0.7 INR PTT (Actin FS) Sodium 142 Potassium 3.8 Chloride 106 Carbon Dioxide 27 Anion Gap 9 BUN 18 Creatinine 1.1 Random Glucose 79 Calcium 9.1 Phosphorus 3.4 Magnesium 2.0 Creatine Kinase 88 Troponin I 0.07 H Urine Color Urine Appearance Urine pH Ur Specific [place] Urine Protein Urine Glucose (UA) Urine Ketones Urine Blood Urine Nitrite Urine Bilirubin Urine Urobilinogen Ur Leukocyte Esterase Active Medications Generic Name Dose Route Start Last Admin Trade Name Luci PRN Reason Stop Dose Admin Aspirin 81 mg 01/02/17 19:00 01/02/17 22:02 Ecotrin - PO 81 mg DAILY DELFINA Administration Atorvastatin Calcium 80 mg 01/01/17 17:30 01/02/17 22:02 Lipitor - PO 80 mg HS DELFINA Administration Enoxaparin Sodium 80 mg 01/02/17 19:04 01/02/17 22:03 Lovenox - SQ Not Given BID [facility] Metoprolol Succinate 25 mg 01/02/17 10:00 01/02/17 11:14 Toprol Xl - PO 25 mg DAILY DELFINA Administration Metoprolol Tartrate 5 mg 01/02/17 13:08 01/02/17 23:29 Lopressor Injection - IVPUSH 5 mg Q4H PRN Administration HYPERTENSION Carotid Doppler mild atherosclerotic disease, no significant stenoses MRI:Acute nonhemorrhagic bilateral occipital/temporal cortical infarcts are seen medially. There is a separate left posterior temporal cortical infarct inferiorly. Small separate left occipital cortical infarcts are also noted. There is no extra-axial fluid collection. The ventricles, cisterns and craniocervical junction appear unremarkable. Signal void is seen within the intracranial vertebral and internal carotid arteries as well as the basilar artery consistent with vessel patency. IMPRESSION: Acute bilateral cerebral infarcts are noted as discussed. ASSESSMENT/PLAN: DC asa start coumadin 2.5 as patient history of elevated INR, consumption of alcohol, unknown diet and, otilia ASSESSMENT/PLAN: 46YM with significant PMH history of smoking, hypertension, HLD, atrial Uncontrolled A fib/A flutter cardioversion failed x2, started off of (coumadin and asa) brought in by EMS for complete right side numbness (head, r arm, r leg ) and bitemporal vision loss began at approximately 2 PM. s/p IV tpa Acute ischemic stroke, most likely embolic 2/2 AFibrillation. s/p TPA day 2: Bitemporal vision loss improving to LEFT eye Left LUQ Quadrantanopia , right side (numbness resolved) -<MRI Acute nonhemorrhagic bilateral occipital/temporal cortical infarcts are seen medially. There is a separate left posterior temporal cortical infarct inferiorly. Small separate left occipital cortical infarcts are also noted. -MRI brain : acute ischemic bilaterall stroke in the occipital lobes. -NIHS is 0 today. -SBP under 130mmHg. -carotid Doppler no acute pathology -neuro check q4h -Echocardiogram no valvular pathology -Speech and swallow eval-done: no impairment -Bed rest for now- PT/OT eval -continue Lovenox, and bridge with warfarin today 2.5mg -discontinue ASA -ordered hb A1C am -VS check Q4H: any change in mental status, sudden onset KERN, focal neurlogical deficit will warrant emergent CT and neuro surgery consulted. AFIB: [id number] = 2 Started today metoprolol tartrate 50 mg tid per cardiology attending. f/u HR and BP (pt denies HTN, but has had elevated levels on occasion during this admission). eccho no valvular pathology. stress MIBI 11/2016 report says no myocardial ischemia; normal LVEF. 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 dieticianconsult to educat nadine on coumadin diet. Alcohol cessation: educated the patient the importance of cessation of alcohol and how it may effect his Coumadin level in blood. Systolic CHF limited ECHO: ?low-normal vs mildly reduced LVEF.will repeat ECHO for LVEF once heart rate is stable Metoprolol started for HR and BP; --well consider starting ACEI stress MIBI 11/2016, LVEF was WNL HLD:LDL 150- -cont atorvastatin 80 mg daily, -will change to Lovastatin 20 mg qhs on discharge -Dietary changes and exercise will also be very important. 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 fluids NS IV 42cc/hr electrolyte replete as needed once it is safe to draw labs. - PT/OT/ST DVT prof: SCD, lovenox Keep HOB 30-45% despo: tele, control HR Visit type - Emergency Visit Emergency Visit: Yes ED Registration Date: 01/01/17 Care time: The patient presented to the Emergency Department on the above date and was hospitalized for further evaluation of their emergent condition. - New Patient This patient is new to me today: No - Critical Care Critical Care patient: No - Discharge Referral Referred to [facility] Med P.[facility] No
[2017-01-03] MEDS ORDERED: METOPROLOL TARTRATE 5 MG/5 ML VIAL IVPUSH PRN (07:42)
[2017-01-03] MEDS ORDERED: ASPIRIN COATED 81 MG TABLET.EC PO SCH (10:00)
--- NOTE | 2017-01-03 10:13 | CON.CARD ---
Consult Consult Specialty:: cardiology Reason for Consultation:: CVA; hx AF - History of Present Illness Chief Complaint: Pt has regained "normal" functioning of right side, though still feels right eye has blurry vision. Feels palpitations if he moves too quickly. History of Present Illness: The patient is a 46 year old male (zenaida [facility]), with history of hypertension , atrial fibrillation s/p b/l renal infarct in February 2016, not on anticoagluants , brought in by EMS for complete right side numbness (head, r arm, r leg) and decreased visual field that began at approximately 2 PM. The patient reports he has only a narrow field of vision, able to see directly in front of him but limited on either side of his visual field. He states his numbness is improved on ED arrival. The patient denies any headache, dizziness or focal weakness. He denies nausea, vomiting, or diaphoresis. The patient was seen immediately by me on ED arrival. Seen by Dr. Pham of cardiology in the past. Pt says he was on warfarin in the past, but stopped when INR became 13. He was then on rivaroxaban, but found it too expensive (and had ? nosebleed). He has not been on any anticoagulant for months. 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 Cardio/Vascular: Yes: HTN, Hyperlipdemia Renal/: No: Renal Failure - Past Surgical History Past Surgical History: Yes: None - Alcohol/Substance Use Hx Alcohol Use: Yes - Smoking History Smoking history: Former smoker Have you smoked in the past 12 months: No Home Medications - Allergies Allergies/Adverse Reactions: Allergies Allergy/AdvReac Type Severity Reaction Status Date / Time No Known Allergies Allergy Verified 01/01/17 15:10 - Home Medications Home Medications: Ambulatory Orders Metoprolol Succinate [Toprol Xl -] 25 mg PO DAILY 01/01/17 Family Disease History - Family Disease History Family History: Denies Review of Systems - Review of Systems Constitutional: reports: Weakness Eyes: reports: Blurred Vision HENT: reports: No Symptoms Neck: reports: No Symptoms Cardiovascular: reports: No Symptoms Respiratory: reports: No Symptoms Gastrointestinal: reports: No Symptoms Genitourinary: reports: No Symptoms Breasts: reports: No Symptoms Reported Musculoskeletal: reports: Muscle Weakness Integumentary: reports: No Symptoms Neurological: reports: Weakness Psychiatric: reports: Anxiety - Risk Factors Known Risk Factors: Yes: Age, Gender, Hypercholesterolemia, Hypertension Vital Signs: Vital Signs Temperature 98 F 01/03/17 06:00 Pulse Rate 168 H 01/03/17 08:21 Respiratory Rate 20 01/03/17 06:00 Blood Pressure 120/89 01/03/17 08:21 O2 Sat by Pulse Oximetry (%) 100 01/02/17 22:00 Constitutional: Yes: Anxious Eyes: Yes: WNL HENT: Yes: WNL Neck: Yes: WNL Respiratory: Yes: Regular Gastrointestinal: Yes: Soft Renal/: No: Anuria Cardiovascular: Yes: Tachycardia, Pulse Irregular JVD: No Carotid Bruit: No PMI: Non-Displaced Heart Sounds: Yes: S1 (varies in intensity) Edema: No Peripheral Pulses WNL: Yes ( ) Integumentary: Yes: WNL Neurological: Yes: Alert, Oriented, Other (blurry vision right) Psychiatric: Yes: Alert, Oriented - Other Data Labs, Other Data: CBC, BMP 01/03/17 05:10 01/03/17 05:10 INR, PTT INR 1.24 (0.82-1.09) H 01/03/17 05:10 Troponin, BNP 01/03/17 01/03/17 01:00 05:10 Troponin I 0.08 H 0.07 H Troponin, BNP 01/03/17 01/03/17 01:00 05:10 Troponin I 0.08 H 0.07 H Abnormal Lab Results 01/03/17 01/03/17 01/03/17 01:00 05:10 05:10 Monocytes % INR 1.24 H PTT (Actin FS) 39.6 H Troponin I 0.08 H 0.07 H 01/03/17 05:10 Monocytes % 10.5 H INR PTT (Actin FS) Troponin I Echo: Report Reviewed (limited study: low normal or mildly reduced LVEF (? difficult interpretation due to AF with RVR)) Imaging - Results Chest X-ray: Image Reviewed (no acute pathology) EKG: Image Reviewed (AF, RVR, nonspecific ST-T changes) Problem List - Problems (1) Atrial fibrillation Assessment/Plan: Pt was on metoprolol ?tartrate 25 mg daily; ? 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 Started today metoprolol tartrate 50 mg tid; f/u HR and BP (pt denies HTN, but has had elevated levels on occasion during this admission). Start warfarin when OK by neurologist (pt has been on Xarelto, but it was too expensive; please use all generic medications at the lowest jenkins possible for him, as he does not have coverage for medications). Pt states he had a stress MIBI with Dr. Thorne a month ago that was "fine"; no hx coronary angiogram. Please obtain records. Addendum: stress MIBI 11/2016 report says no myocardial ischemia; normal LVEF. Discussed pt with neurologist: pt can be started on warfarin; use heparin IV, or Lovenox one mg/kgBW twice daily until INR is 2-3. Code(s): I48.91 - UNSPECIFIED ATRIAL FIBRILLATION Qualifiers: Atrial fibrillation type: persistent Qualified Code(s): I48.1 - Persistent atrial fibrillation (2) CVA (cerebral vascular accident) Assessment/Plan: major improvement after TPa. F/u with neurologist. Code(s): I63.9 - CEREBRAL INFARCTION, UNSPECIFIED Qualifiers: CVA mechanism: embolism Precerebral and cerebral artery: unspecified cerebral artery Qualified Code(s): I63.40 - Cerebral infarction due to embolism of unspecified cerebral artery (3) Visual field defect Assessment/Plan: neurologist says this has now resolved. Code(s): H53.40 - UNSPECIFIED VISUAL FIELD DEFECTS (4) Daily consumption of alcohol Assessment/Plan: Pt says he stopped drinking altogether since atrial fibrillation was diagnosed a year ago. Code(s): [id number] - (5) Hyperlipidemia Assessment/Plan: On atorvastatin; if he does not have medication coverage or a clinic that will supply him with meds, please change to Lovastatin 20 mg qhs when he goes home (he can get the medication at [facility] for S4/month; otherwise, we will almost certainly not continue to take statin). Dietary changes and exercise will also be very important. Code(s): E78.5 - HYPERLIPIDEMIA, UNSPECIFIED (6) Sleep apnea Assessment/Plan: Pt will be followed up regarding the possibility of him having this, per trust and estates paralegal. Code(s): G47.30 - SLEEP APNEA, UNSPECIFIED (7) Systolic CHF Assessment/Plan: limited ECHO: ?low-normal vs mildly reduced LVEF. Metoprolol started for HR and BP; consider starting ACEI. (Would repeat ECHO for LVEF once heart rate is stable; on a stress MIBI 11/2016, LVEF by gated study was WNL). Code(s): I50.20 - UNSPECIFIED SYSTOLIC (CONGESTIVE) HEART FAILURE Assessment/Plan Clarification: Our group was consulted to see Mr. Arteaga for cardiac issues. Dr Lynch came to see pt 01/02/2017 morning, but found that he is a patient of Dr. Horta' s (foundry molder). The mistake was noted, and distribution clerk was told by CCU MD to change the consult to Dr. Horta right away. Later, however, Dr. Horta's office staff called to say that he was away on vacation. In addition, the pt said he did not want to continue seeing Dr. Horta. This information was not conveyed to Dr. Lynch until today (01/03/2017). I saw Mr. Arteaga in initial consult this morning.
[2017-01-03] MEDS: ENOXAPARIN NA (PORCINE) 80 MG/0.8 ML DISP.SYRIN SQ SCH ×2 (10:17→23:07)
[2017-01-03] MEDS: METOPROLOL TARTRATE 50 MG TABLET (FP) PO SCH ×3 (10:45→23:04)
--- NOTE | 2017-01-03 12:00 | PN ---
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 Pt and deny any changes in speech and swallowing function. Sp/Sw/cognition all seem WNL at this time. Continue diet as ordered.
--- NOTE | 2017-01-03 13:27 | PN ---
Progress Note, Physician Chief Complaint: right side numbness, vision loss History of Present Illness: 46 year old jordanian speaking male patient, history of atrial fibrillation (off coumadin), hypertension, hyperlipidemia, presented yesterday to the ED with acute onset of right side numbness and bitemporal vision loss. The patient complained of acute onset of right side numbness and bitemporal vision loss. Shortly after he presented his sensory symptoms resolved but visual symptoms persisted. He denies currently being maintained on any antiplatelet, or anticoagulation. Last year he was on coumadin for his atrial fibrillation but the INR spiked up so his heavy lift rigger changed him to Xarelto. On Xarelto the patient presented gum bleedings and Xarelto was stopped also. Since February 2016 he is not on asa, plavix, coumadin or NOAC. He denies recent surgery, GI bleed, recent stroke. - Current Medication List Current Medications: Active Medications Aspirin (Ecotrin -) 81 mg PO DAILY [facility] Last Admin: 01/03/17 10:17 Dose: 81 mg Atorvastatin Calcium (Lipitor -) 80 mg PO HS [facility] Enoxaparin Sodium (Lovenox -) 80 mg SQ BID [facility] Last Admin: 01/03/17 10:17 Dose: 80 mg Metoprolol Tartrate (Lopressor Injection -) 5 mg IVPUSH Q4H PRN PRN Reason: HYPERTENSION Last Admin: 01/03/17 08:21 Dose: 5 mg Metoprolol Tartrate (Lopressor -) 50 mg PO TID [facility] Last Admin: 01/03/17 10:45 Dose: 50 mg - Objective Vital Signs: Vital Signs Temperature 98 F 01/03/17 06:00 Pulse Rate 168 H 01/03/17 08:21 Respiratory Rate 20 01/03/17 08:00 Blood Pressure 120/89 01/03/17 08:21 O2 Sat by Pulse Oximetry (%) 99 01/03/17 08:00 Constitutional: Yes: Well Nourished, No Distress, Calm Eyes: Yes: Conjunctiva Clear, EOM Intact, PERRL HENT: Yes: Atraumatic, Normocephalic Neck: Yes: Supple, Trachea Midline Cardiovascular: Yes: Regular Rate and Rhythm, Tachycardia, Pulse Irregular, S1, S2 Respiratory: Yes: Regular, CTA Bilaterally Gastrointestinal: Yes: Normal Bowel Sounds, Soft Genitourinary: Yes: WNL Musculoskeletal: Yes: WNL Extremities: Yes: WNL Edema: No Peripheral Pulses WNL: Yes Peripheral Pulses: Left Radial: 1+, Right Radial: 1+ Neurological: Yes: WNL, Alert, Oriented, Babinski negative, Cran Nerves II-XII Intact, Other (NIHS is 0.) ...Motor Strength: WNL Psychiatric: Yes: WNL, Alert, Oriented Labs: CBC, BMP 01/03/17 05:10 01/03/17 05:10 INR, PTT INR 1.24 (0.82-1.09) H 01/03/17 05:10 - ....Imaging Chest X-ray: Report Reviewed, Image Reviewed Ultrasound: Report Reviewed, Image Reviewed MRI: Report Reviewed, Image Reviewed EKG: Report Reviewed, Image Reviewed Other: Report Reviewed, Image Reviewed Problem List - Problems (1) Visual field defect Code(s): H53.40 - UNSPECIFIED VISUAL FIELD DEFECTS (2) CVA (cerebral vascular accident) Code(s): I63.9 - CEREBRAL INFARCTION, UNSPECIFIED Qualifiers: CVA mechanism: embolism Precerebral and cerebral artery: unspecified cerebral artery Qualified Code(s): I63.40 - Cerebral infarction due to embolism of unspecified cerebral artery (3) Atrial fibrillation Code(s): I48.91 - UNSPECIFIED ATRIAL FIBRILLATION Qualifiers: Atrial fibrillation type: persistent Qualified Code(s): I48.1 - Persistent atrial fibrillation Assessment/Plan 46 year old man, history of atrial fibrillation (off coumadin), hypertension, hyperlipidemia, presented yesterday to the ED with acute onset of right side numbness and bitemporal vision loss. The patient complained of acute onset of right side numbness and bitemporal vision loss. Shortly after he presented his sensory symptoms resolved but visual symptoms persisted. He denies currently being maintained on any antiplatelet, or anticoagulation. Last year he was on coumadin for his atrial fibrillation but the INR spiked up so his heavy lift rigger changed him to Xarelto. On Xarelto the patient presented gum bleedings and Xarelto was stopped also. Since February 2016 he is not on asa, plavix, coumadin or NOAC. He denies recent surgery, GI bleed, recent stroke. 46y. male patient, jordanian speaking with pmh. AF not on on AC, not on ASA, not on Plavix presents for sudden right side numbness and visual field cut. He received tpa iv. yesterday. MRI brain : acute ischemic bilaterall stroke in the occipital lobes. Impression acute ischemic stroke, most likely embolic , due to AFibrillation. post ivtpa. NIHS is 0 today. Plan: - stroke counseling and education- discussed with the patient the [employer] 4$ medication list so he can financially can afford the coumadin, the metroprolol, the statin. - cardiology consult for AFIB. -consult appreciated- bridge with heparin till coumadin. INR therapeutic - continues statin, beta orion , SBP under 130mmHg. -stroke work up : doppler carotids, MRI brain, echocardiogram, lipids profile, HbA1C. - DVT prophylaxis- heparin sq. - PT/OT/ST - will follow up
[2017-01-03] MEDS ORDERED: METOPROLOL TARTRATE 50 MG TABLET (FP) PO SCH (14:00)
[2017-01-03] MEDS: WARFARIN NA 2.5 MG TABLET (FP) PO SCH (18:19)
[2017-01-03] MEDS ORDERED: ACETAMINOPHEN 325 MG TABLET (FP) PO ONE (22:54)
[2017-01-03] MEDS ORDERED: ACETAMINOPHEN 325 MG TABLET (FP) ONE (22:55)
[2017-01-03] MEDS: ATORVASTATIN CA 80 MG TABLET (FP) PO SCH (23:04)
[2017-01-04] MEDS: METOPROLOL TARTRATE 50 MG TABLET (FP) PO SCH ×3 (06:01→22:10)
[2017-01-04 07:08] LABS: INR 1.19 (0.82-1.09); PROTHROMBIN TIME (PATIENT) 13.1 SEC (9.98-11.88)
[2017-01-04] MEDS: ENOXAPARIN NA (PORCINE) 80 MG/0.8 ML DISP.SYRIN SQ SCH ×2 (09:49→22:10)
--- NOTE | 2017-01-04 13:01 | PN ---
Progress Note, Physician History of Present Illness: he patient is a 46 year old male (zenaida Renee), with history of hypertension , atrial fibrillation s/p b/l renal infarct in February 2016, not on anticoagluants , brought in by EMS for complete right side numbness (head, r arm, r leg) and decreased visual field that began at approximately 2 PM. The patient reports he has only a narrow field of vision, able to see directly in front of him but limited on either side of his visual field. He states his numbness is improved on ED arrival. The patient denies any headache, dizziness or focal weakness. He denies nausea, vomiting, or diaphoresis. The patient was seen immediately by me on ED arrival. Seen by Dr. Pham of cardiology in the past. Pt says he was on warfarin in the past, but stopped when INR became 13. He was then on rivaroxaban, but found it too expensive (and had ? nosebleed). He has not been on any anticoagulant for months. - Current Medication List Current Medications: Active Medications Atorvastatin Calcium (Lipitor -) 80 mg PO HS [facility] Last Admin: 01/03/17 23:04 Dose: 80 mg Enoxaparin Sodium (Lovenox -) 80 mg SQ BID [facility] Last Admin: 01/04/17 09:49 Dose: 80 mg Metoprolol Tartrate (Lopressor Injection -) 5 mg IVPUSH Q4H PRN PRN Reason: HYPERTENSION Last Admin: 01/03/17 08:21 Dose: 5 mg Metoprolol Tartrate (Lopressor -) 50 mg PO TID [facility] Last Admin: 01/04/17 06:01 Dose: 50 mg Warfarin Sodium (Coumadin -) 2.5 mg PO DAILY@1800 [facility] Last Admin: 01/03/17 18:19 Dose: 2.5 mg - Objective Vital Signs: Vital Signs Temperature 98.2 F 01/04/17 12:53 Pulse Rate 66 01/04/17 12:53 Respiratory Rate 20 01/04/17 12:53 Blood Pressure 112/74 01/04/17 12:53 O2 Sat by Pulse Oximetry (%) 97 01/04/17 07:30 Eyes: Yes: WNL, Conjunctiva Clear, EOM Intact HENT: Yes: WNL, Atraumatic, Normocephalic Neck: Yes: WNL, Supple, Trachea Midline Cardiovascular: Yes: Pulse Irregular, S1, S2 Respiratory: Yes: WNL, Regular, CTA Bilaterally Gastrointestinal: Yes: WNL, Normal Bowel Sounds Genitourinary: Yes: WNL Musculoskeletal: Yes: WNL Extremities: Yes: WNL Edema: No Integumentary: Yes: WNL ...Motor Strength: WNL Psychiatric: Yes: WNL Labs: CBC, BMP 01/03/17 05:10 01/03/17 05:10 INR, PTT INR 1.19 (0.82-1.09) H 01/04/17 05:35 Assessment/Plan Problems (1) Atrial fibrillation Assessment/Plan: Pt was on metoprolol ?tartrate 25 mg daily; ? 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 Started today metoprolol tartrate 50 mg tid; f/u HR and BP (pt denies HTN, but has had elevated levels on occasion during this admission). Start warfarin when OK by neurologist (pt has been on Xarelto, but it was too expensive; please use all generic medications at the lowest jenkins possible for him, as he does not have coverage for medications). Pt states he had a stress MIBI with Dr. Thorne a month ago that was "fine"; no hx coronary angiogram. Please obtain records. Addendum: stress MIBI 11/2016 report says no myocardial ischemia; normal LVEF. Discussed pt with neurologist: pt can be started on warfarin; use heparin IV, or Lovenox one mg/kgBW twice daily until INR is 2-3. Code(s): I48.91 - UNSPECIFIED ATRIAL FIBRILLATION Qualifiers: Atrial fibrillation type: persistent Qualified Code(s): I48.1 - Persistent atrial fibrillation (2) CVA (cerebral vascular accident) Assessment/Plan: major improvement after TPa. F/u with neurologist. Code(s): I63.9 - CEREBRAL INFARCTION, UNSPECIFIED Qualifiers: CVA mechanism: embolism Precerebral and cerebral artery: unspecified cerebral artery Qualified Code(s): I63.40 - Cerebral infarction due to embolism of unspecified cerebral artery (3) Visual field defect Assessment/Plan: neurologist says this has now resolved. Code(s): H53.40 - UNSPECIFIED VISUAL FIELD DEFECTS (4) Daily consumption of alcohol Assessment/Plan: Pt says he stopped drinking altogether since atrial fibrillation was diagnosed a year ago. Code(s): [id number] - (5) Hyperlipidemia Assessment/Plan: On atorvastatin; if he does not have medication coverage or a clinic that will supply him with meds, please change to Lovastatin 20 mg qhs when he goes home (he can get the medication at [facility] for S4/month; otherwise, we will almost certainly not continue to take statin). Dietary changes and exercise will also be very important. Code(s): E78.5 - HYPERLIPIDEMIA, UNSPECIFIED (6) Sleep apnea Assessment/Plan: Pt will be followed up regarding the possibility of him having this, per tub tender. Code(s): G47.30 - SLEEP APNEA, UNSPECIFIED (7) Systolic CHF Assessment/Plan: limited ECHO: ?low-normal vs mildly reduced LVEF. Metoprolol started for HR and BP; consider starting ACEI. (Would repeat ECHO for LVEF once heart rate is stable; on a stress MIBI 11/2016, LVEF by gated study was WNL). Code(s): I50.20 - UNSPECIFIED SYSTOLIC (CONGESTIVE) HEART FAILURE Assessment/Plan Clarification: Our group was consulted to see Mr. Arteaga for cardiac issues. I came to see pt 01/02/2017 morning, but found that he is a patient of Dr. Horta's (inventory control analyst ). The mistake was noted, and stockroom clerk was told by CCU MD to change the consult to Dr. Horta right away. Later, however, Dr. Horta's office staff called to say that he was away on vacation. In addition, the pt said he did not want to continue seeing Dr. Horta. This information was not conveyed to me until yesterday (01/03/2017).
--- NOTE | 2017-01-04 14:08 | PN ---
<KimDimas carpenter - Last Filed: 01/04/17 14:23> Physical Exam: ATTENDING PHYSICIAN STATEMENT I saw and evaluated the patient. I reviewed the resident's note and discussed the case with the resident. I agree with the resident's findings and plan as documented. 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 admitted for acute B/L CVA CVA -has known history of afib with B/L renal infarcts -was on coumadin in the past but states that coumadin was stopped by email deployment specialist when INR was found to be greater than 10 last year -MRI shows B/L infarcts -peripheral vision is improving bilaterally -echo shows no vegetations and no thrombus; will discuss with cardiology if patient would benefit from UCHE as echo had poor windows and this is now the second embolization pt has suffered from -started coumadin with lovenox bridge -cont statin -cont betablocker for rate control of afib <Rmaona Winston - Last Filed: 01/04/17 15:37> Physical Exam: SUBJECTIVE: Patient seen and examined at bed side. patient denies any focal neurological deficit. on neuro exam improving visual filed, improving Left LUQ acuity. HR on tele in 160's with activity. cardiology notified by nurse. OBJECTIVE: Vital Signs Period Temp Pulse Resp BP Sys/Grayson Pulse Ox Last 24 Hr 97 F-98.2 F 66-98 20-20 110-134/67-90 97-99 GENERAL: Awake, alert, and fully oriented, in no acute distress. HEAD: Normal with no signs of trauma. EYES: Pupils equal, round and reactive to light, extraocular movements intact, sclera anicteric, conjunctiva clear. No lid lag. bitemporal vision loss) EARS, NOSE, THROAT: Ears normal, nares patent, oropharynx clear without exudates. Moist mucous membranes. NECK: Normal range of motion, supple without lymphadenopathy, JVD, or masses. LUNGS: Breath sounds equal, clear to auscultation bilaterally. No wheezes, No accessory muscle use. HEART: irregular irregular , normal S1 and S2 without murmur, rub or gallop. ABDOMEN: Soft, nontender, not distended, normoactive bowel sounds, no guarding, no rebound, no masses. No hepatomegaly or splenomegaly. MUSCULOSKELETAL: Normal range of motion at all joints. No bony deformities or tenderness. No CVA tenderness. LOWER EXTREMITIES: 2+ pulses, warm, well-perfused. No calf tenderness. No peripheral edema. NEUROLOGICAL: Cranial nerves II-XII intact. Normal speech. (no facial droop, EOMI), strength 5/5 all ext, neg babinski, soft touch sensation equal, decreased Left LLQ visual field improving from yesterday . gait normal, neg Romberg. PSYCHIATRIC: Cooperative. Good eye contact. Appropriate mood and affect. SKIN: Warm, dry, normal turgor, no rashes or lesions noted. Laboratory Results - last 24 hr 01/04/17 05:35 INR 1.19 H Active Medications Generic Name Dose Route Start Last Admin Trade Name Freq PRN Reason Stop Dose Admin Atorvastatin Calcium 80 mg 01/03/17 22:00 01/03/17 23:04 Lipitor - PO 80 mg HS DELFINA Administration Enoxaparin Sodium 80 mg 01/03/17 10:00 01/04/17 09:49 Lovenox - SQ 80 mg BID DELFINA Administration Metoprolol Tartrate 5 mg 01/03/17 07:42 01/03/17 08:21 Lopressor Injection - IVPUSH 5 mg Q4H PRN Administration HYPERTENSION Metoprolol Tartrate 50 mg 01/03/17 10:50 01/04/17 06:01 Lopressor - PO 50 mg TID DELFINA Administration Warfarin Sodium 2.5 mg 01/03/17 18:00 01/03/17 18:19 Coumadin - PO 2.5 mg DAILY@1800 [facility] Administration ASSESSMENT/PLAN: 46YM with significant PMH history of smoking, hypertension, HLD, atrial Uncontrolled A fib/A flutter cardioversion failed x2, started off of (coumadin and asa) brought in by EMS for complete right side numbness (head, r arm, r leg ) and bitemporal vision loss began at approximately 2 PM. s/p IV tpa Acute ischemic stroke, most likely embolic 2/2 AFibrillation. s/p TPA day 2: Bitemporal vision loss improving to LEFT eye Left LUQ Quadrantanopia (resolving ) , right side (numbness resolved), decreased visual acuity -<MRI Acute nonhemorrhagic bilateral occipital/temporal cortical infarcts are seen medially. There is a separate left posterior temporal cortical infarct inferiorly. Small separate left occipital cortical infarcts are also noted. -MRI brain : acute ischemic bilaterall stroke in the occipital lobes. -NIHS is 0 today. -SBP under 130mmHg. -carotid Doppler no acute pathology -neuro check q4h -Echocardiogram no valvular pathology: I called cardiology and left a message with psychologist research assistant awaiting call back, in regards Elevated HR and if UCHE is feasible inlight of patient recurrent history of embolic events. -Speech and swallow eval-done: no impairment -Bed rest for now- PT/OT eval -continue Lovenox, and bridge with warfarin today 2.5mg -discontinue ASA - hb A1C am pending -VS check Q4H: any change in mental status, sudden onset KERN, focal neurlogical deficit will warrant emergent CT and neuro surgery consulted. AFIB: [id number] = 2 continue metoprolol tartrate 50 mg tid per cardiology attending. f/u HR and BP (pt denies HTN, but has had elevated levels on occasion during this admission). eccho no valvular pathology. will consider UCHE stress MIBI 11/2016 report says no myocardial ischemia; normal LVEF. called Dr Agustin office to obtain records, weekend receptionist will fax over records. Alcohol cessation: educated the patient the importance of cessation of alcohol and how it may effect his Coumadin level in blood. Systolic CHF limited ECHO: ?low-normal vs mildly reduced LVEF.will repeat ECHO for LVEF once heart rate is stable, possible UCHE continue Metoprolol for HR and BP; --well consider starting ACEI stress MIBI 11/2016, LVEF was WNL HLD:LDL 150- -cont atorvastatin 80 mg daily, -will change to Lovastatin 20 mg qhs on discharge -Dietary changes and exercise will also be very important. r/o DM: -f/u hga1c pending Sleep apnea work up as out patient with supervisor rose grading FEN nutrition na diet pending swallow eval, aspiration precautions. fluids NS IV 42cc/hr electrolyte replete as needed once it is safe to draw labs. - PT/OT/ST DVT prof: SCD, lovenox despo: tele, control HR Visit type - Emergency Visit Emergency Visit: Yes ED Registration Date: 01/01/17 Care time: The patient presented to the Emergency Department on the above date and was hospitalized for further evaluation of their emergent condition. - New Patient This patient is new to me today: No - Critical Care Critical Care patient: No
--- NOTE | 2017-01-04 15:30 | PN ---
Progress Note, Physician Chief Complaint: right side numbness, vision loss History of Present Illness: 46 year old botswanan speaking male patient, history of atrial fibrillation (off coumadin), hypertension, hyperlipidemia, presented yesterday to the ED with acute onset of right side numbness and bitemporal vision loss. The patient complained of acute onset of right side numbness and bitemporal vision loss. Shortly after he presented his sensory symptoms resolved but visual symptoms persisted. He denies currently being maintained on any antiplatelet, or anticoagulation. Last year he was on coumadin for his atrial fibrillation but the INR spiked up so his ultrasound technologist sonographer changed him to Xarelto. On Xarelto the patient presented gum bleedings and Xarelto was stopped also. Since February 2016 he is not on asa, plavix, coumadin or NOAC. He denies recent surgery, GI bleed, recent stroke. - Current Medication List Current Medications: Active Medications Atorvastatin Calcium (Lipitor -) 80 mg PO HS [facility] Last Admin: 01/03/17 23:04 Dose: 80 mg Enoxaparin Sodium (Lovenox -) 80 mg SQ BID [facility] Last Admin: 01/04/17 09:49 Dose: 80 mg Metoprolol Tartrate (Lopressor Injection -) 5 mg IVPUSH Q4H PRN PRN Reason: HYPERTENSION Last Admin: 01/03/17 08:21 Dose: 5 mg Metoprolol Tartrate (Lopressor -) 50 mg PO TID [facility] Last Admin: 01/04/17 14:56 Dose: 50 mg Warfarin Sodium (Coumadin -) 2.5 mg PO DAILY@1800 [facility] Last Admin: 01/03/17 18:19 Dose: 2.5 mg - Objective Vital Signs: Vital Signs Temperature 98.2 F 01/04/17 12:53 Pulse Rate 84 01/04/17 14:56 Respiratory Rate 20 01/04/17 14:56 Blood Pressure 135/84 01/04/17 14:56 O2 Sat by Pulse Oximetry (%) 97 01/04/17 07:30 Constitutional: Yes: No Distress, Calm Eyes: Yes: Conjunctiva Clear, EOM Intact, PERRL HENT: Yes: Atraumatic, Normocephalic Neck: Yes: Supple, Trachea Midline Cardiovascular: Yes: Regular Rate and Rhythm, S1, S2 Respiratory: Yes: Regular, CTA Bilaterally Neurological: Yes: WNL, Alert, Oriented, Babinski negative, Cran Nerves II-XII Intact, Other (right superior temporal visual field cut. NIHS is 1p. due to VF cut) ...Motor Strength: WNL Psychiatric: Yes: Alert, Oriented Labs: CBC, BMP 01/03/17 05:10 01/03/17 05:10 INR, PTT INR 1.19 (0.82-1.09) H 01/04/17 05:35 - ....Imaging Chest X-ray: Report Reviewed Ultrasound: Report Reviewed, Image Reviewed MRI: Report Reviewed, Image Reviewed EKG: Report Reviewed Other: Report Reviewed, Image Reviewed Problem List - Problems (1) Visual field defect Code(s): H53.40 - UNSPECIFIED VISUAL FIELD DEFECTS (2) CVA (cerebral vascular accident) Code(s): I63.9 - CEREBRAL INFARCTION, UNSPECIFIED Qualifiers: Qualified Code(s): I63.40 - Cerebral infarction due to embolism of unspecified cerebral artery (3) Atrial fibrillation Code(s): I48.91 - UNSPECIFIED ATRIAL FIBRILLATION Qualifiers: Qualified Code(s): I48.1 - Persistent atrial fibrillation Assessment/Plan 46 year old man, history of atrial fibrillation (off coumadin), hypertension, hyperlipidemia, presented yesterday to the ED with acute onset of right side numbness and bitemporal vision loss. The patient complained of acute onset of right side numbness and bitemporal vision loss. Shortly after he presented his sensory symptoms resolved but visual symptoms persisted. He denies currently being maintained on any antiplatelet, or anticoagulation. Last year he was on coumadin for his atrial fibrillation but the INR spiked up so his ultrasound technologist sonographer changed him to Xarelto. On Xarelto the patient presented gum bleedings and Xarelto was stopped also. Since February 2016 he is not on asa, plavix, coumadin or NOAC. He denies recent surgery, GI bleed, recent stroke. 46y. male patient, botswanan speaking with pmh. AF not on on AC, not on ASA, not on Plavix presents for sudden right side numbness and visual field cut. He received tpa iv. yesterday. MRI brain : acute ischemic bilaterall stroke in the occipital lobes. Impression acute ischemic stroke, most likely embolic , due to AFibrillation. post ivtpa. NIHS is 1p for R. sup. VF cut today. Plan: - started on Lovenox bridging to warfarin. till INR therapeutic - cardiology management for AFib. rate uncontrolled - continues statin, beta orion , SBP under 130mmHg. -stroke work up : doppler carotids, MRI brain, echocardiogram, lipids profile, HbA1C. - DVT prophylaxis- heparin sq. - PT/OT/ST - will follow up
[2017-01-04] MEDS: WARFARIN NA 2.5 MG TABLET (FP) PO SCH (17:05)
[2017-01-04] MEDS: ATORVASTATIN CA 80 MG TABLET (FP) PO SCH (22:10)
[2017-01-05] MEDS: METOPROLOL TARTRATE 50 MG TABLET (FP) PO SCH ×2 (06:16→15:26)
[2017-01-05 07:21] LABS: MCH 30.1 pg (25.7-33.7); MCHC 33.4 g/dl (32.0-35.9); MEAN CELL VOLUME 89.9 fl (80-96); MEAN PLT VOLUME 9.7 fl (7.5-11.1); PLATELET COUNT 182 K/MM3 (134-434); RDW 13.9 % (11.9-15.9); WHITE BLOOD COUNT 7.6 K/mm3 (4.0-10.0)
[2017-01-05 07:33] LABS: INR 1.22 (0.82-1.09); PROTHROMBIN TIME (PATIENT) 13.5 SEC (9.98-11.88)
[2017-01-05 07:36] LABS: ACTIVATED PTT 47.3 SECONDS (26.9-34.4)
[2017-01-05 07:48] LABS: CALCIUM 8.8 mg/dL (8.5-10.1); CREATININE 0.9 mg/dL (0.7-1.3)
--- NOTE | 2017-01-05 08:07 | PN ---
Progress Note, Physician Chief Complaint: Pt A&Ox3; denies palpitations; he is very anxious to go home ("I'm getting sick staying in the hospital"). History of Present Illness: The patient is a 46 year old male (christianoToney Igor Renee), with history of hypertension , atrial fibrillation s/p b/l renal infarct in February 2016, not on anticoagluants , brought in by EMS for complete right side numbness (head, r arm, r leg) and decreased visual field that began at approximately 2 PM. The patient reports he has only a narrow field of vision, able to see directly in front of him but limited on either side of his visual field. He states his numbness is improved on ED arrival. The patient denies any headache, dizziness or focal weakness. He denies nausea, vomiting, or diaphoresis. The patient was seen immediately by me on ED arrival. Seen by Dr. Pham of cardiology in the past. Pt says he was on warfarin in the past, but stopped when INR became 13. He was then on rivaroxaban, but found it too expensive (and had ? nosebleed). He has not been on any anticoagulant for months. - Current Medication List Current Medications: Active Medications Atorvastatin Calcium (Lipitor -) 80 mg PO HS [facility] Last Admin: 01/04/17 22:10 Dose: 80 mg Enoxaparin Sodium (Lovenox -) 80 mg SQ BID [facility] Last Admin: 01/04/17 22:10 Dose: 80 mg Metoprolol Tartrate (Lopressor Injection -) 5 mg IVPUSH Q4H PRN PRN Reason: HYPERTENSION Last Admin: 01/03/17 08:21 Dose: 5 mg Metoprolol Tartrate (Lopressor -) 50 mg PO TID [facility] Last Admin: 01/05/17 06:16 Dose: 50 mg Warfarin Sodium (Coumadin -) 2.5 mg PO DAILY@1800 [facility] Last Admin: 01/04/17 17:05 Dose: 2.5 mg - Objective Vital Signs: Vital Signs Temperature 96.8 F L 01/05/17 06:00 Pulse Rate 62 01/05/17 06:00 Respiratory Rate 18 01/05/17 06:00 Blood Pressure 129/71 01/05/17 06:00 O2 Sat by Pulse Oximetry (%) 97 01/04/17 21:00 Constitutional: Yes: Anxious, Mild Distress Eyes: Yes: WNL HENT: Yes: WNL Neck: Yes: WNL Cardiovascular: Yes: Pulse Irregular Respiratory: Yes: Regular Gastrointestinal: Yes: Soft Genitourinary: No: Anuria Breast(s): Yes: WNL Musculoskeletal: Yes: Muscle Weakness Extremities: Yes: Cool Edema: No Peripheral Pulses WNL: Yes Integumentary: Yes: WNL Neurological: Yes: Alert, Oriented Psychiatric: Yes: WNL Labs: INR, PTT INR 1.19 (0.82-1.09) H 01/04/17 05:35 Abnormal Lab Results 01/05/17 05:35 INR 1.22 H PTT (Actin FS) 47.3 H - ....Imaging MRI: Report Reviewed (acute bilateral cortical infarcts) Problem List - Problems (1) Atrial fibrillation Assessment/Plan: Pt was on metoprolol ?tartrate 25 mg daily; ? 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 Started today metoprolol tartrate 50 mg tid; f/u HR and BP (pt denies HTN, but has had elevated levels on occasion during this admission). Start warfarin when OK by neurologist (pt has been on Xarelto, but it was too expensive; please use all generic medications at the lowest jenkins possible for him, as he does not have coverage for medications). Pt states he had a stress MIBI with Dr. Thorne a month ago that was "fine"; no hx coronary angiogram. Please obtain records. Addendum: stress MIBI 11/2016 report says no myocardial ischemia; normal LVEF. Discussed pt with neurologist: pt can be started on warfarin; use heparin IV, or Lovenox one mg/kgBW twice daily until INR is 2-3. Code(s): I48.91 - UNSPECIFIED ATRIAL FIBRILLATION Qualifiers: Qualified Code(s): I48.1 - Persistent atrial fibrillation (2) CVA (cerebral vascular accident) Assessment/Plan: major improvement after TPa. F/u with neurologist. Code(s): I63.9 - CEREBRAL INFARCTION, UNSPECIFIED Qualifiers: Qualified Code(s): I63.40 - Cerebral infarction due to embolism of unspecified cerebral artery (3) Visual field defect Assessment/Plan: neurologist says this has now resolved. Code(s): H53.40 - UNSPECIFIED VISUAL FIELD DEFECTS (4) Daily consumption of alcohol Assessment/Plan: Pt says he stopped drinking altogether since atrial fibrillation was diagnosed a year ago. Code(s): PIR9996 - (5) Hyperlipidemia Assessment/Plan: On atorvastatin; if he does not have medication coverage or a clinic that will supply him with meds, please change to Lovastatin 20 mg qhs when he goes home (he can get the medication at [facility] for S4/month; otherwise, we will almost certainly not continue to take statin). Dietary changes and exercise will also be very important. Code(s): E78.5 - HYPERLIPIDEMIA, UNSPECIFIED (6) Sleep apnea Assessment/Plan: Pt will be followed up regarding the possibility of him having this, per lining strap closer. Code(s): G47.30 - SLEEP APNEA, UNSPECIFIED (7) Systolic CHF Assessment/Plan: limited ECHO: ?low-normal vs mildly reduced LVEF. Metoprolol started for HR and BP; consider starting ACEI. (Would repeat ECHO for LVEF once heart rate is stable; on a stress MIBI 11/2016, LVEF by gated study was WNL). Code(s): I50.20 - UNSPECIFIED SYSTOLIC (CONGESTIVE) HEART FAILURE
[2017-01-05] MEDS: ENOXAPARIN NA (PORCINE) 80 MG/0.8 ML DISP.SYRIN SQ SCH (10:07)
--- NOTE | 2017-01-05 12:06 | DS ---
Physical Exam: SUBJECTIVE: Patient seen and examined OBJECTIVE: Vital Signs Period Temp Pulse Resp BP Sys/Grayson Pulse Ox Last 24 Hr 96.8 F-98.8 F 58-84 18-20 93-135/50-88 96-97 PHYSICAL EXAM GENERAL: The patient is awake, alert, and fully oriented, in no acute distress. HEAD: Normal with no signs of trauma. EYES: PERRL, extraocular movements intact, sclera anicteric, conjunctiva clear. ENT: Ears normal, nares patent, oropharynx clear without exudates, moist mucous membranes. NECK: Trachea midline, full range of motion, supple. LUNGS: Breath sounds equal, clear to auscultation bilaterally, no wheezes, no crackles, no accessory muscle use. HEART: Regular rate and rhythm, S1, S2 without murmur, rub or gallop. ABDOMEN: Soft, nontender, nondistended, normoactive bowel sounds, no guarding, no rebound, no hepatosplenomegaly, no masses. EXTREMITIES: 2+ pulses, warm, well-perfused, no edema. NEUROLOGICAL: Cranial nerves II through XII grossly intact. Normal speech, gait not observed. PSYCH: Normal mood, normal affect. SKIN: Warm, dry, normal turgor, no rashes or lesions noted. LABS Laboratory Results - last 24 hr 01/04/17 01/05/17 01/05/17 05:35 05:35 05:35 WBC 7.6 RBC 4.69 Hgb 14.1 D Hct 42.2 MCV 89.9 MCHC 33.4 RDW 13.9 Plt Count 182 D MPV 9.7 INR 1.22 H PTT (Actin FS) 47.3 H Sodium Potassium Chloride Carbon Dioxide Anion Gap BUN Creatinine Random Glucose Hemoglobin A1c % 5.8 Calcium 01/05/17 05:35 WBC RBC Hgb Hct MCV MCHC RDW Plt Count MPV INR PTT (Actin FS) Sodium 144 Potassium 3.7 Chloride 107 Carbon Dioxide 25 Anion Gap 12 BUN 15 Creatinine 0.9 Random Glucose 77 Hemoglobin A1c % Calcium 8.8 HOSPITAL COURSE: Date of Admission:01/01/17 Date of Discharge: 01/05/17 Discharge Summary Reason For Visit: CVA Current Active Problems Atrial fibrillation (Acute) CVA (cerebral vascular accident) (Acute) Hyperlipidemia (Acute) Systolic CHF (Acute) Visual field defect (Acute) Condition: Stable - Instructions Diet, Activity, Other Instructions: You are being discharged home. Please call and follow up with your primary care provider in one week to assess your health, monitor your INR (Coumadin level with in 3 days. Please call and follow up with cardiology DR. Dillon in 2 week. Please call and follow up with Neurology Dr faulkner in one week, Please take you medications as prescribed. Please reports to the ER or the nearest ER if you have any persistent and worsening symptoms, chest pain, palpitation, bleeding, fevers, chills, night sweats, Nausea, Vomiting, severe headache dizziness or loss of consciousness. Referrals: Yudith Donohue NP [Primary Care Provider] - 1 Week Kaci Faulkner MD [Staff Physician] - 1 Week Casper Loco MD [Staff Physician] - 1 Week Disposition: HOME - Home Medications Comprehensive Discharge Medication List: Ambulatory Orders Enoxaparin Sodium [Lovenox] 120 mg SQ HS #7 syringe 01/05/17 Lovastatin 20 mg PO DAILY #30 tablet 01/05/17 Metoprolol Succinate [Toprol XL -] 200 mg PO DAILY #30 tab.sr.24h 01/05/17 Warfarin Na [Coumadin -] 2.5 mg PO DAILY@1800 #30 tablet 01/05/17
--- NOTE | 2017-01-05 13:50 | DS ---
Physical Exam: ATTENDING PHYSICIAN STATEMENT I saw and evaluated the patient. I reviewed the resident's note and discussed the case with the resident. I agree with the resident's findings and plan as documented. 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 admitted for acute B/L CVA CVA -has known history of afib with B/L renal infarcts -was on coumadin in the past but states that coumadin was stopped by swage toolsetter when INR was found to be greater than 10 last year -MRI shows B/L infarcts -peripheral vision is improving bilaterally -echo shows no vegetations and no thrombus; discussed case with cardiology if patient would benefit from UCHE as echo had poor windows and this is now the second embolization pt has suffered from and plan is for possible outpatient procedure -started coumadin with lovenox bridge -cont statin -increased metoprolol to 200 QD after discussion with cardio attending <Dimas Kim - Last Filed: 01/05/17 14:25> Physical Exam: SUBJECTIVE: Patient seen and examined at bed side. patient feeling well, vission improving, R side numbness has completely resolved. patient educated and discussed with the patient several times on how to take mediations, check INR every other day, scheduled appointments. discussed diet. and alcohol cessation. patient complained of Left lateral rest swelling from IV line inserted by EMS. denied chest pain, palpitations, sob, n/v/d constipation. OBJECTIVE: Vital Signs Period Temp Pulse Resp BP Sys/Grayson Pulse Ox Last 24 Hr 96.8 F-98.8 F 58-84 18-20 93-135/50-88 96-97 PHYSICAL EXAM GENERAL: Awake, alert, and fully oriented, in no acute distress. HEAD: Normal with no signs of trauma. EYES: Pupils equal, round and reactive to light, extraocular movements intact, sclera anicteric, conjunctiva clear. No lid lag. bitemporal vision loss) EARS, NOSE, THROAT: Ears normal, nares patent, oropharynx clear without exudates. Moist mucous membranes. NECK: Normal range of motion, supple without lymphadenopathy, JVD, or masses. LUNGS: Breath sounds equal, clear to auscultation bilaterally. No wheezes, No accessory muscle use. HEART: Regular rate rhythm , normal S1 and S2 without murmur, rub or gallop. ABDOMEN: Soft, nontender, not distended, normoactive bowel sounds, no guarding, no rebound, no masses. No hepatomegaly or splenomegaly. MUSCULOSKELETAL: Normal range of motion at all joints. No bony deformities or tenderness. No CVA tenderness. LOWER EXTREMITIES: 2+ pulses, warm, well-perfused. No calf tenderness. No peripheral edema. NEUROLOGICAL: Cranial nerves II-XII intact. Normal speech. (no facial droop, EOMI), strength 5/5 all ext, neg babinski, soft touch sensation equal, decreased R UQ visual field improving from yesterday . gait normal PSYCHIATRIC: Cooperative. Good eye contact. Appropriate mood and affect. SKIN: Warm, dry, normal turgor, no rashes or lesions noted. LABS Laboratory Results - last 24 hr 01/04/17 01/05/17 01/05/17 05:35 05:35 05:35 WBC 7.6 RBC 4.69 Hgb 14.1 D Hct 42.2 MCV 89.9 MCHC 33.4 RDW 13.9 Plt Count 182 D MPV 9.7 INR 1.22 H PTT (Actin FS) 47.3 H Sodium Potassium Chloride Carbon Dioxide Anion Gap BUN Creatinine Random Glucose Hemoglobin A1c % 5.8 Calcium 01/05/17 05:35 WBC RBC Hgb Hct MCV MCHC RDW Plt Count MPV INR PTT (Actin FS) Sodium 144 Potassium 3.7 Chloride 107 Carbon Dioxide 25 Anion Gap 12 BUN 15 Creatinine 0.9 Random Glucose 77 Hemoglobin A1c % Calcium 8.8 Active Medications Generic Name Dose Route Start Last Admin Trade Name Freq PRN Reason Stop Dose Admin Atorvastatin Calcium 80 mg 01/03/17 22:00 01/04/17 22:10 Lipitor - PO 80 mg HS DELFINA Administration Enoxaparin Sodium 80 mg 01/03/17 10:00 01/05/17 10:07 Lovenox - SQ 80 mg BID DELFINA Administration Metoprolol Tartrate 5 mg 01/03/17 07:42 01/03/17 08:21 Lopressor Injection - IVPUSH 5 mg Q4H PRN Administration HYPERTENSION Metoprolol Tartrate 50 mg 01/03/17 10:50 01/05/17 06:16 Lopressor - PO 50 mg TID DELFINA Administration Warfarin Sodium 2.5 mg 01/03/17 18:00 01/04/17 17:05 Coumadin - PO 2.5 mg DAILY@1800 DELFINA Administration Carotid Doppler mild atherosclerotic disease, no significant stenoses MRI:Acute nonhemorrhagic bilateral occipital/temporal cortical infarcts are seen medially. There is a separate left posterior temporal cortical infarct inferiorly. Small separate left occipital cortical infarcts are also noted. There is no extra-axial fluid collection. The ventricles, cisterns and craniocervical junction appear unremarkable. Signal void is seen within the intracranial vertebral and internal carotid arteries as well as the basilar artery consistent with vessel patency. IMPRESSION: Acute bilateral cerebral infarcts are noted as discussed. HOSPITAL COURSE: Date of Admission:01/01/17 Date of Discharge: 01/05/17 46YM with significant PMH history of smoking, hypertension, HLD, atrial Uncontrolled A fib/A flutter cardioversion failed x2, started on amiodarone, verapamil, Coumadin,asa, currently has not taken any of the medication other than Metoprolol, s/p b/l renal infarct in February 2016, not on anticoagluants, brought in by EMS for complete right side numbness (head, r arm, r leg) and decreased visual field that began at approximately 2 PM. patient reports sitting down and eating seafood and a glass of wine while suddenly, progressive tunnel vision bilateral eyes, and Right side of body numbness. no Exacerbating/ alleviating factors. no focal weakness, speech changes, blurred or double vision vision, , fevers, vomiting, no recent trauma. The patient denies any headache, dizziness or focal weakness. To note: patient reports all his medications including asa and Coumadin discontinued by his PCP for gum bleeding and his INR was 13. the only medication he is currently on is metoprolol To note: His HR at home is normally 40's to 180's. ER course was notable for: CT head in ED showed no acute hemorrhage NIHSS 2- vision field loss (1)He denies nausea, vomiting, or diaphoresis. The patient was seen immediately by me on ED arrival. He states his numbness is improved on ED arrival. (2)Neuro consulted and Given TPA. (3)addimitted to ICU with TPA protocol. 46YM with significant PMH history of smoking, hypertension, HLD, atrial Uncontrolled A fib/A flutter cardioversion failed x2, started off of (coumadin and asa) brought in by EMS for complete right side numbness (head, r arm, r leg ) and bitemporal vision loss.began at approximately 2 PM. s/p IV tpa discussed Acute ischemic stroke, most likely embolic 2/2 AFibrillation. s/p TPA day 2: Bitemporal vision loss improving to LEFT eye Left LUQ Quadrantanopia , right side (numbness resolved) -NIHSS 2 for vision field loss -MRI Acute nonhemorrhagic bilateral occipital/temporal cortical infarcts are seen medially. There is a separate left posterior temporal cortical infarct inferiorly. Small separate left occipital cortical infarcts are also noted. - MRI brain : acute ischemic bilaterall stroke in the occipital lobes. carotid Doppler no acute pathology, Echocardiogram no valvular pathology, Speech and swallow eval-done: no impairment, Bed rest for now- PT/OT eval. continue Lovenox , and bridge with warfarin today 2.5mg. discharged w 7 days of lovenox , Coumadin, and INR appointment for next day. discontinue ASA, hb A1C 5.6. AFIB : Uncontrolled A fib/A flutter cardioversion failed x2 in previous admission, home HR is in 180's. converted to normal sinus 67BP at rest, pr 166, QTc 42, no t wave st changes, on 50mg metoprolol titrate TID, switched to go home on succenate 200daily. Not currently on anticoagulation and ASA. HLD:LDL 150- atorvastatin 80 mg daily.DM: f/u hga1c. patient discharge home stable, vital stable, EKG NS, INH score improved to 1, for only R Superior vission field cut, and some decreased of cisual acutiy that has improved but a bit less than hsi normal while reading with glasses. Minutes to complete discharge: 35 <Ramona Winston - Last Filed: 01/05/17 18:59> Discharge Summary Current Active Problems Atrial fibrillation (Acute) CVA (cerebral vascular accident) (Acute) Hyperlipidemia (Acute) Systolic CHF (Acute) Visual field defect (Acute) - Home Medications Comprehensive Discharge Medication List: Ambulatory Orders Enoxaparin Sodium [Lovenox] 120 mg SQ HS #7 syringe 01/05/17 Lovastatin 20 mg PO DAILY #30 tablet 01/05/17 Metoprolol Succinate [Toprol XL -] 200 mg PO DAILY #30 tab.sr.24h 01/05/17 Warfarin Na [Coumadin -] 2.5 mg PO DAILY@1800 #30 tablet 01/05/17 <Dimas Kim - Last Filed: 01/05/17 14:25> Reason For Visit: CVA Current Active Problems Atrial fibrillation (Acute) CVA (cerebral vascular accident) (Acute) Hyperlipidemia (Acute) Systolic CHF (Acute) Visual field defect (Acute) - Home Medications Comprehensive Discharge Medication List: Ambulatory Orders Enoxaparin Sodium [Lovenox] 120 mg SQ HS #7 syringe 01/05/17 Lovastatin 20 mg PO DAILY #30 tablet 01/05/17 Metoprolol Succinate [Toprol XL -] 200 mg PO DAILY #30 tab.sr.24h 01/05/17 Warfarin Na [Coumadin -] 2.5 mg PO DAILY@1800 #30 tablet 01/05/17 <Ramona Winston - Last Filed: 01/05/17 18:59> Condition: Stable - Instructions Diet, Activity, Other Instructions: You are being discharged home. Please call and follow up with your Dr Aggarwal assess your health, monitor your INR tomorrow Monday at 10:15 am at [facility] , [address] [place] [address], you will check your INR every other day. please check inr every other day in [facility]. once inr is beween 2-3 stop lovenox and continue coumadin and check your inr with your primary care provider Please call and follow up with cardiology DR. Dillon in 2 week. Please call and follow up with Neurology Dr faulkner in one week, Please take you medications as prescribed. Please reports to the ER or the nearest ER if you have any persistent and worsening symptoms, chest pain, palpitation, bleeding, fevers, chills, night sweats, Nausea, Vomiting, severe headache dizziness or loss of consciousness. Referrals: Kaci Faulkner MD [Staff Physician] - 1 Week Casper Loco MD [Staff Physician] - 1 Week Disposition: TRANSFER ACUTE CARE/OTHER HOSP This patient is new to me today: Yes Date on this admission: 01/05/17 Emergency Visit: No Critical Care patient: No - Discharge Referral Referred to [facility] Med P.C[facility] No <Ramona Winston - Last Filed: 01/05/17 18:59>
--- NOTE | 2017-01-05 14:09 | EKG ---
Test Reason : Blood Pressure : / mmHG Vent. Rate : 067 BPM Atrial Rate : 067 BPM P-R Int : 166 ms QRS Dur : 094 ms QT Int : 398 ms P-R-T Axes : 054 011 016 degrees QTc Int : 420 ms NORMAL SINUS RHYTHM NORMAL ECG WHEN COMPARED WITH ECG OF 01-JAN-2017 15:19, SINUS RHYTHM HAS REPLACED ATRIAL FIBRILLATION VENT. RATE HAS DECREASED BY 51 BPM NONSPECIFIC T WAVE ABNORMALITY NO LONGER EVIDENT IN LATERAL LEADS Confirmed by NICOLAS BRO MD ([id number]) on 01/05/2017 2:09:28 PM Referred By: ZA MCGUIRE Confirmed By:NICOLAS BRO MD
[2017-01-05 15:28] VITALS: BP 118/66; PULSE 62; TEMP 98
--- NOTE | 2017-01-05 15:32 | PN ---
Progress Note, Physician Chief Complaint: right side numbness, vision loss History of Present Illness: 46 year old beninese speaking male patient, history of atrial fibrillation (off coumadin), hypertension, hyperlipidemia, presented yesterday to the ED with acute onset of right side numbness and bitemporal vision loss. The patient complained of acute onset of right side numbness and bitemporal vision loss. Shortly after he presented his sensory symptoms resolved but visual symptoms persisted. He denies currently being maintained on any antiplatelet, or anticoagulation. Last year he was on coumadin for his atrial fibrillation but the INR spiked up so his hand stone polisher changed him to Xarelto. On Xarelto the patient presented gum bleedings and Xarelto was stopped also. Since February 2016 he is not on asa, plavix, coumadin or NOAC. He denies recent surgery, GI bleed, recent stroke. - Current Medication List Current Medications: Active Medications Atorvastatin Calcium (Lipitor -) 80 mg PO HS [facility] Last Admin: 01/04/17 22:10 Dose: 80 mg Enoxaparin Sodium (Lovenox -) 80 mg SQ BID [facility] Last Admin: 01/05/17 10:07 Dose: 80 mg Metoprolol Tartrate (Lopressor Injection -) 5 mg IVPUSH Q4H PRN PRN Reason: HYPERTENSION Last Admin: 01/03/17 08:21 Dose: 5 mg Metoprolol Tartrate (Lopressor -) 50 mg PO TID [facility] Last Admin: 01/05/17 15:26 Dose: Not Given Warfarin Sodium (Coumadin -) 2.5 mg PO DAILY@1800 [facility] Last Admin: 01/04/17 17:05 Dose: 2.5 mg - Objective Vital Signs: Vital Signs Temperature 98 F 01/05/17 15:00 Pulse Rate 62 01/05/17 15:00 Respiratory Rate 14 01/05/17 15:00 Blood Pressure 118/66 01/05/17 15:00 O2 Sat by Pulse Oximetry (%) 96 01/05/17 09:00 Constitutional: Yes: No Distress, Calm Eyes: Yes: Conjunctiva Clear, EOM Intact (bilateral temporal superior visual field cut) HENT: Yes: Atraumatic, Normocephalic Neck: Yes: Supple, Trachea Midline Cardiovascular: Yes: Regular Rate and Rhythm, S1, S2 Respiratory: Yes: Regular, CTA Bilaterally Gastrointestinal: Yes: Normal Bowel Sounds, Soft Genitourinary: Yes: WNL Breast(s): Yes: WNL Musculoskeletal: Yes: WNL Extremities: Yes: WNL Edema: No Neurological: Yes: Alert, Oriented, Babinski negative, Cran Nerves II-XII Intact , Other (NIHS is 1p for visual field cut temporal superior bilaterally) ...Motor Strength: WNL Psychiatric: Yes: WNL, Alert, Oriented Labs: CBC, BMP 01/05/17 05:35 01/05/17 05:35 INR, PTT INR 1.22 (0.82-1.09) H 01/05/17 05:35 Problem List - Problems (1) Visual field defect Code(s): H53.40 - UNSPECIFIED VISUAL FIELD DEFECTS (2) CVA (cerebral vascular accident) Code(s): I63.9 - CEREBRAL INFARCTION, UNSPECIFIED Qualifiers: CVA mechanism: embolism Precerebral and cerebral artery: unspecified cerebral artery Qualified Code(s): I63.40 - Cerebral infarction due to embolism of unspecified cerebral artery (3) Atrial fibrillation Code(s): I48.91 - UNSPECIFIED ATRIAL FIBRILLATION Qualifiers: Atrial fibrillation type: persistent Qualified Code(s): I48.1 - Persistent atrial fibrillation Assessment/Plan 46 year old man, history of atrial fibrillation (off coumadin), hypertension, hyperlipidemia, presented yesterday to the ED with acute onset of right side numbness and bitemporal vision loss. The patient complained of acute onset of right side numbness and bitemporal vision loss. Shortly after he presented his sensory symptoms resolved but visual symptoms persisted. He denies currently being maintained on any antiplatelet, or anticoagulation. Last year he was on coumadin for his atrial fibrillation but the INR spiked up so his hand stone polisher changed him to Xarelto. On Xarelto the patient presented gum bleedings and Xarelto was stopped also. Since February 2016 he is not on asa, plavix, coumadin or NOAC. He denies recent surgery, GI bleed, recent stroke. 46y. male patient, beninese speaking with pmh. AF not on on AC, not on ASA, not on Plavix presents for sudden right side numbness and visual field cut. He received tpa iv. yesterday. MRI brain : acute ischemic bilaterall stroke in the occipital lobes. Impression acute ischemic stroke, most likely embolic , due to AFibrillation. post ivtpa. NIHS is 1p for R. sup. VF cut today. Plan: - on Lovenox bridging to warfarin. till INR therapeutic - cardiology management for AFib. rate - continues statin, beta orion , SBP under 130mmHg. -stroke work up done. : doppler carotids, MRI brain, echocardiogram, lipids profile, HbA1C. - he can be discharged home on lovenox till inr therapeutic. - no driving till ophtalmology visual field testing. - follow up in four weeks in the Neurology Office.
[2017-01-05] MEDS: WARFARIN NA 2.5 MG TABLET (FP) PO SCH (17:56)
== END 2017-01-05 18:50 | disposition home or self-care (01) | DRG 45 ==
LOC: JER 15:07 → JERBED 17:44 → JICU 18:36 → J4W 01-03 08:00
PROVIDERS: ADMIT Internal Medicine; ATTEND Internal Medicine
DX: I63.8 Other cerebral infarction (principal); R29.702 NIHSS score 2; I48.91 Unspecified atrial fibrillation; I10 Essential (primary) hypertension; E78.5 Hyperlipidemia, unspecified; I48.92 Unspecified atrial flutter; H54.3 Unqualified visual loss, both eyes; H53.40 Unspecified visual field defects; G47.39 Other sleep apnea; I50.20 Unspecified systolic (congestive) heart failure; F10.10 Alcohol abuse, uncomplicated
CPT/HCPCS: 36415; 70450-TC; 70551-TC; 71010-TC; 80048; 80053; 81003; 82465; 82550; 82553; 83036; 83718; 83721; 83735; 84100; 84478; 84484; 85025; 85027; 85610; 85730; 86850; 86900; 86901; 93005; 93010; 93306-TC; 93880-TC; 97116-GP; 97161-GP; 99285-25; J2997

== ENCOUNTER 2021-05-24 02:38 | Inpatient (IN) | payer OTHER ==
[2021-05-24 02:48] VITALS: BMI 26.6
[2021-05-24] MEDS ORDERED: METOPROLOL TARTRATE 5 MG/5 ML VIAL IVPUSH ONE (03:26)
[2021-05-24] MEDS ORDERED: METOPROLOL TARTRATE 5 MG/5 ML VIAL ONE (03:31)
[2021-05-24 03:38] LABS: BASO % 0.9 % (0-2.0); EOS % 3.6 % (0-4.5); HEMATOCRIT 48.6 % (35.4-49); HEMOGLOBIN 16.3 GM/dL (11.7-16.9); LYMPH % 29.9 % (8-40); MCH 30.9 pg (25.7-33.7); MCHC 33.6 g/dl (32.0-35.9); MEAN CELL VOLUME 91.8 fl (80-96); MONO % 14.4 % (3.8-10.2); NEUT % 51.2 % (42.8-82.8); PLATELET COUNT 201 10^3/uL (134-434); RBC 5.29 M/mm3 (4.00-5.60); RDW 14.2 % (11.9-15.9); WHITE BLOOD COUNT 7.9 K/mm3 (4.0-10.0)
[2021-05-24 03:58] LABS: CHLORIDE 111 mmol/L (98-107); SODIUM 144 mmol/L (136-145)
[2021-05-24 04:01] LABS: CALCIUM 8.7 mg/dL (8.5-10.1)
[2021-05-24 04:02] LABS: ALBUMIN 3.7 g/dl (3.4-5.0); ANION GAP 9 MMOL/L (8-16); BLOOD UREA NITROGEN 20.3 mg/dL (7-18); CO2 24 mmol/L (21-32); GLUCOSE,RANDOM 103 mg/dL (74-106)
[2021-05-24 04:05] LABS: CREATININE 1.1 mg/dL (0.55-1.3); SGOT/AST 31 U/L (15-37); SGPT/ALT 45 U/L (13-61)
[2021-05-24 04:07] LABS: BILIRUBIN,TOTAL 0.4 mg/dL (0.2-1); CHOLESTEROL 184 mg/dL (50-200); TOT PROT 7.7 g/dl (6.4-8.2); TRIGLYCERIDES 221 mg/dL (0-150)
[2021-05-24 04:08] LABS: ALK PHOS 107 U/L (45-117); INR 0.93 (0.83-1.09); LDL CHOLESTEROL (ONLY SJRH) 104 mg/dL (5-100); PROTHROMBIN TIME (PATIENT) 11.5 SEC (9.7-13.0)
[2021-05-24 04:10] LABS: HDL CHOLESTEROL 50 mg/dL (40-60)
[2021-05-24 04:11] LABS: ACTIVATED PTT 33.8 SECONDS (25.2-36.5)
[2021-05-24] MEDS ORDERED: METOPROLOL TARTRATE 5 MG/5 ML VIAL IVPUSH PRN ×2 (06:32→06:47)
[2021-05-24 06:33] LABS: EPI CELLS 2 /uL (0-25.1); HYALINE CASTS 0 /uL (0-3.1); URINE APPEARANCE CLEAR; URINE BACTERIA 1 /uL (0-1359); URINE BILIRUBIN NEGATIVE (NEGATIVE); URINE COLOR YELLOW; URINE GLUCOSE (UA) NEGATIVE (NEGATIVE); URINE KETONE NEGATIVE (NEGATIVE); URINE LEUK ESTERASE NEGATIVE (NEGATIVE); URINE NITRITE NEGATIVE (NEGATIVE); URINE PROTEIN 2+ (NEGATIVE); URINE RBC 1 /uL (0-23.9); URINE UROBILINOGEN 0.2 mg/dL (0.2-1.0); URINE WBC 1 /uL (0-25.8)
[2021-05-24 09:12] LABS: BASO % 1.2 % (0-2.0); EOS % 2.9 % (0-4.5); HEMATOCRIT 49.6 % (35.4-49); HEMOGLOBIN 16.5 GM/dL (11.7-16.9); LYMPH % 34.2 % (8-40); MCH 30.9 pg (25.7-33.7); MCHC 33.3 g/dl (32.0-35.9); MEAN CELL VOLUME 92.9 fl (80-96); MEAN PLT VOLUME 8.9 fl (7.5-11.1); NEUT % 49.7 % (42.8-82.8); PLATELET COUNT 192 10^3/uL (134-434); RBC 5.34 M/mm3 (4.00-5.60); RDW 14.3 % (11.9-15.9); WHITE BLOOD COUNT 8.7 K/mm3 (4.0-10.0)
[2021-05-24 09:24] LABS: BLOOD UREA NITROGEN 18.5 mg/dL (7-18); CALCIUM 8.7 mg/dL (8.5-10.1)
[2021-05-24 09:25] LABS: ALBUMIN 3.7 g/dl (3.4-5.0); MAGNESIUM 2.4 mg/dL (1.8-2.4)
[2021-05-24 09:27] LABS: PHOSPHOROUS 3.5 mg/dL (2.5-4.9)
[2021-05-24 09:28] LABS: BILIRUBIN,TOTAL 0.4 mg/dL (0.2-1); CREATININE 0.9 mg/dL (0.55-1.3)
[2021-05-24 09:30] LABS: TOT PROT 7.8 g/dl (6.4-8.2)
[2021-05-24] MEDS: amLODIPine BESYLATE 5 MG TABLET (FP) PO SCH (09:49)
[2021-05-24] MEDS ORDERED: amLODIPine BESYLATE 5 MG TABLET (FP) ONE (09:51)
[2021-05-24] MEDS: metoPROLOL SUCCINATE 25 MG TAB.SR.24H (FP) PO SCH (12:13)
[2021-05-24] MEDS: RIVAROXABAN 20 MG TABLET PO SCH (17:31)
[2021-05-24] MEDS: ATORVASTATIN CA 40 MG TABLET (FP) PO SCH (21:10)
[2021-05-24] MEDS ORDERED: ATORVASTATIN CA 80 MG TABLET (FP) PO SCH (22:00)
[2021-05-25 07:25] LABS: ALBUMIN 3.4 g/dl (3.4-5.0); BLOOD UREA NITROGEN 15.3 mg/dL (7-18); CALCIUM 9.3 mg/dL (8.5-10.1); MAGNESIUM 2.2 mg/dL (1.8-2.4)
[2021-05-25 07:29] LABS: CREATININE 0.9 mg/dL (0.55-1.3); PHOSPHOROUS 3.1 mg/dL (2.5-4.9)
[2021-05-25 07:30] LABS: BILIRUBIN,TOTAL 0.6 mg/dL (0.2-1); TOT PROT 7.3 g/dl (6.4-8.2)
[2021-05-25 07:38] LABS: BASO % 0.8 % (0-2.0); EOS % 3.2 % (0-4.5); HEMOGLOBIN 16.9 GM/dL (11.7-16.9); LYMPH % 30.8 % (8-40); MCHC 33.8 g/dl (32.0-35.9); MEAN CELL VOLUME 91.8 fl (80-96); MEAN PLT VOLUME 8.8 fl (7.5-11.1); MONO % 11.8 % (3.8-10.2); NEUT % 53.4 % (42.8-82.8); PLATELET COUNT 201 10^3/uL (134-434); RBC 5.44 M/mm3 (4.00-5.60); WHITE BLOOD COUNT 7.2 K/mm3 (4.0-10.0)
[2021-05-25] MEDS: amLODIPine BESYLATE 5 MG TABLET (FP) PO SCH (09:25)
[2021-05-25] MEDS: metoPROLOL SUCCINATE 25 MG TAB.SR.24H (FP) PO SCH (09:25)
[2021-05-25] MEDS ORDERED: metoPROLOL SUCCINATE 25 MG TAB.SR.24H (FP) PO ONE (13:45)
[2021-05-25] MEDS ORDERED: PT OWN MED DRAWER 7, Y5N ONE (14:39)
[2021-05-25] MEDS: VERAPAMIL HCL 120 MG E.R. TABLET PO SCH (14:47)
[2021-05-25] MEDS: RIVAROXABAN 20 MG TABLET PO SCH (17:58)
[2021-05-25] MEDS: ATORVASTATIN CA 40 MG TABLET (FP) PO SCH (21:02)
[2021-05-25] MEDS: ASPIRIN COATED 81 MG TABLET.EC PO SCH (21:19)
[2021-05-26 07:12] LABS: BASO % 0.5 % (0-2.0); EOS % 3.2 % (0-4.5); HEMATOCRIT 49.4 % (35.4-49); HEMOGLOBIN 16.5 GM/dL (11.7-16.9); LYMPH % 32.5 % (8-40); MCH 30.7 pg (25.7-33.7); MCHC 33.4 g/dl (32.0-35.9); MEAN CELL VOLUME 91.9 fl (80-96); MEAN PLT VOLUME 8.8 fl (7.5-11.1); MONO % 10.2 % (3.8-10.2); NEUT % 53.6 % (42.8-82.8); PLATELET COUNT 190 10^3/uL (134-434); RBC 5.38 M/mm3 (4.00-5.60); RDW 13.9 % (11.9-15.9); WHITE BLOOD COUNT 7.8 K/mm3 (4.0-10.0)
[2021-05-26 07:47] LABS: ALBUMIN 3.4 g/dl (3.4-5.0); BLOOD UREA NITROGEN 14.7 mg/dL (7-18)
[2021-05-26 07:48] LABS: BILIRUBIN,TOTAL 0.7 mg/dL (0.2-1); MAGNESIUM 2.2 mg/dL (1.8-2.4)
[2021-05-26 07:50] LABS: PHOSPHOROUS 3.4 mg/dL (2.5-4.9)
[2021-05-26 07:51] LABS: TOT PROT 7.2 g/dl (6.4-8.2)
[2021-05-26] MEDS: ASPIRIN COATED 81 MG TABLET.EC PO SCH (09:43)
[2021-05-26] MEDS: VERAPAMIL HCL 120 MG E.R. TABLET PO SCH (09:43)
[2021-05-26] MEDS ORDERED: metoPROLOL SUCCINATE 25 MG TAB.SR.24H (FP) PO SCH (10:00)
[2021-05-26 14:18] VITALS: BP 136/72; PULSE 78; TEMP 97.5
[2021-05-26] MEDS ORDERED: ATORVASTATIN CA 80 MG TABLET (FP) PO SCH (22:00)
[2021-05-26] MEDS ORDERED: ENOXAPARIN NA (PORCINE) 80 MG/0.8 ML DISP.SYRIN SQ SCH (22:00)
[2021-05-28 08:07] LABS: DRVVT - 73.8 sec (0.0-47.0); DRVVT CONFIRM SECONDS 1.6 ratio (0.8-1.2); dRVVT MIX 49.1 sec (0.0-40.4)
== END 2021-05-26 18:22 | disposition home or self-care (01) | DRG 45 ==
LOC: JER 02:38 → JERBED 04:19 → J4W 10:23
PROVIDERS: ADMIT Internal Medicine; ATTEND Internal Medicine
DX: I63.9 Cerebral infarction, unspecified (principal); I10 Essential (primary) hypertension; G81.94 Hemiplegia, unspecified affecting left nondominant side; E78.5 Hyperlipidemia, unspecified; M10.9 Gout, unspecified; I24.8 Other forms of acute ischemic heart disease; I48.11 Longstanding persistent atrial fibrillation; I48.92 Unspecified atrial flutter; I16.0 Hypertensive urgency; R29.701 NIHSS score 1
CPT/HCPCS: 36415; 70450-TC; 70551-TC; 80053; 80061; 81003; 81240; 81241; 82550; 82553; 82962; 83721; 83735; 84100; 84436; 84439; 84443; 84484; 85025; 85610; 85613; 85730; 85732; 86850; 86900; 86901; 93005; 93010; 93306-TC; 93880-TC; 93971-TC; 97116-GP; 97161-GP; 99285-25; C9803; U0003; U0005

== ENCOUNTER 2021-10-03 01:04 | Observation (INO) | payer OTHER ==
[2021-10-03] MEDS ORDERED: dilTIAZem HCL 125 MG/25 ML - 25 ML VIAL ONE (01:42)
[2021-10-03 01:44] VITALS: BMI 30.7
[2021-10-03] MEDS ORDERED: dilTIAZem HCL 50 MG/10 ML - 10 ML VIAL IVPUSH ONE (01:45)
[2021-10-03] MEDS ORDERED: SODIUM CHLORIDE 0.9% 500 ML INFUS.BAG IV ONE (01:45)
[2021-10-03] MEDS ORDERED: dilTIAZem HCL 60 MG TABLET PO ONE (02:02)
[2021-10-03 02:03] LABS: BASO % 0.5 % (0-2.0); HEMATOCRIT 43.4 % (35.4-49); HEMOGLOBIN 14.8 GM/dL (11.7-16.9); LYMPH % 14.9 % (8-40); MCH 31.2 pg (25.7-33.7); MCHC 34.2 g/dl (32.0-35.9); MEAN CELL VOLUME 91.3 fl (80-96); MEAN PLT VOLUME 8.3 fl (7.5-11.1); MONO % 12.3 % (3.8-10.2); NEUT % 72.3 % (42.8-82.8); PLATELET COUNT 268 10^3/uL (134-434); RBC 4.75 M/mm3 (4.00-5.60); RDW 13.8 % (11.9-15.9); WHITE BLOOD COUNT 9.4 K/mm3 (4.0-10.0)
[2021-10-03] MEDS ORDERED: dilTIAZem HCL 60 MG TABLET ONE (02:07)
[2021-10-03] MEDS ORDERED: ACETAMINOPHEN 1000 MG/100 ML VIAL IVPB ONE (02:10)
[2021-10-03 02:16] LABS: CHLORIDE 105 mmol/L (98-107); SODIUM 137 mmol/L (136-145)
[2021-10-03 02:18] LABS: ALBUMIN 3.6 g/dl (3.4-5.0); CALCIUM 9.1 mg/dL (8.5-10.1)
[2021-10-03 02:19] LABS: ANION GAP 7 MMOL/L (8-16); BLOOD UREA NITROGEN 17.7 mg/dL (7-18); CO2 25 mmol/L (21-32)
[2021-10-03 02:21] LABS: CREATININE 1.1 mg/dL (0.55-1.3); URIC ACID 7.1 mg/dL (2.6-7.2)
[2021-10-03] MEDS ORDERED: ACETAMINOPHEN INJECTION 100 ML IVPB ONE (02:21)
[2021-10-03 02:22] LABS: SGOT/AST 24 U/L (15-37); SGPT/ALT 39 U/L (13-61)
[2021-10-03 02:23] LABS: BILIRUBIN,TOTAL 0.6 mg/dL (0.2-1); TOT PROT 7.5 g/dl (6.4-8.2)
[2021-10-03 02:24] LABS: ALK PHOS 105 U/L (45-117)
[2021-10-03 02:34] LABS: INR 1.64 (0.83-1.09); PROTHROMBIN TIME (PATIENT) 18.5 SEC (9.7-13.0)
[2021-10-03 03:02] LABS: GLUCOSE,RANDOM 99 mg/dL (74-106)
[2021-10-03] MEDS ORDERED: metoPROLOL SUCCINATE 25 MG TAB.SR.24H (FP) ONE ×2 (06:36→09:25)
[2021-10-03] MEDS ORDERED: APIXABAN 5 MG TABLET ONE (09:23)
[2021-10-03] MEDS ORDERED: PANTOPRAZOLE 40 MG TABLET ONE (09:23)
[2021-10-03] MEDS ORDERED: AMIODARONE HCL 200 MG TABLET ONE (09:25)
[2021-10-03] MEDS: metoPROLOL SUCCINATE 25 MG TAB.SR.24H (FP) PO SCH (09:45)
[2021-10-03] MEDS: SACUBITRIL/VALSARTAN 24 MG-26 MG TABLET PO SCH (09:45)
[2021-10-03] MEDS: PANTOPRAZOLE 40 MG TABLET PO SCH (09:45)
[2021-10-03] MEDS: AMIODARONE HCL 200 MG TABLET PO SCH (09:45)
[2021-10-03] MEDS: ASPIRIN COATED 81 MG TABLET.EC PO SCH (09:45)
[2021-10-03] MEDS: ALLOPURINOL 100 MG TABLET (FP) PO SCH (09:45)
[2021-10-03] MEDS: APIXABAN 5 MG TABLET PO SCH (09:45)
[2021-10-03 12:20] LABS: HEMOGLOBIN 15.4 GM/dL (11.7-16.9); MCH 31.4 pg (25.7-33.7); MCHC 34.1 g/dl (32.0-35.9); MEAN CELL VOLUME 92.1 fl (80-96); MEAN PLT VOLUME 8.4 fl (7.5-11.1); PLATELET COUNT 244 10^3/uL (134-434); RBC 4.89 M/mm3 (4.00-5.60); RDW 13.8 % (11.9-15.9); WHITE BLOOD COUNT 7.3 K/mm3 (4.0-10.0)
[2021-10-03 12:43] LABS: CALCIUM 9.1 mg/dL (8.5-10.1)
[2021-10-03 12:44] LABS: ALBUMIN 3.2 g/dl (3.4-5.0); BLOOD UREA NITROGEN 13.4 mg/dL (7-18); MAGNESIUM 2.4 mg/dL (1.8-2.4)
[2021-10-03 12:47] LABS: PHOSPHOROUS 2.6 mg/dL (2.5-4.9)
[2021-10-03 12:49] LABS: BILIRUBIN,TOTAL 0.7 mg/dL (0.2-1); TOT PROT 7.2 g/dl (6.4-8.2)
[2021-10-04] MEDS ORDERED: APIXABAN 5 MG TABLET ONE ×2 (02:32→09:01)
[2021-10-04] MEDS ORDERED: ATORVASTATIN CA 40 MG TABLET (FP) ONE (02:32)
[2021-10-04] MEDS: APIXABAN 5 MG TABLET PO SCH ×3 (02:36→21:00)
[2021-10-04] MEDS: ATORVASTATIN CA 40 MG TABLET (FP) PO SCH ×2 (02:36→21:00)
[2021-10-04] MEDS: SACUBITRIL/VALSARTAN 24 MG-26 MG TABLET PO SCH ×3 (06:34→21:06)
[2021-10-04] MEDS: metoPROLOL SUCCINATE 25 MG TAB.SR.24H (FP) PO SCH (06:38)
[2021-10-04] MEDS ORDERED: ASPIRIN COATED 81 MG TABLET.EC ONE (09:01)
[2021-10-04] MEDS ORDERED: PANTOPRAZOLE 40 MG TABLET ONE (09:01)
[2021-10-04] MEDS ORDERED: AMIODARONE HCL 200 MG TABLET ONE (09:01)
[2021-10-04] MEDS: ASPIRIN COATED 81 MG TABLET.EC PO SCH (09:21)
[2021-10-04] MEDS: AMIODARONE HCL 200 MG TABLET PO SCH (09:21)
[2021-10-04] MEDS: PANTOPRAZOLE 40 MG TABLET PO SCH (09:21)
[2021-10-04] MEDS: ALLOPURINOL 100 MG TABLET (FP) PO SCH (09:21)
[2021-10-04] MEDS ORDERED: PT OWN MED DRAWER 7, Y5N ONE (20:52)
[2021-10-05 05:26] VITALS: PULSE 42
[2021-10-05] MEDS: metoPROLOL SUCCINATE 25 MG TAB.SR.24H (FP) PO SCH (06:12)
[2021-10-05 07:35] LABS: HEMATOCRIT 44.4 % (35.4-49); HEMOGLOBIN 14.9 GM/dL (11.7-16.9); MCH 31.4 pg (25.7-33.7); MCHC 33.6 g/dl (32.0-35.9); MEAN CELL VOLUME 93.6 fl (80-96); MEAN PLT VOLUME 9.5 fl (7.5-11.1); PLATELET COUNT 255 10^3/uL (134-434); RBC 4.74 M/mm3 (4.00-5.60); RDW 13.9 % (11.9-15.9); WHITE BLOOD COUNT 6.9 K/mm3 (4.0-10.0)
[2021-10-05 08:15] LABS: BLOOD UREA NITROGEN 13.2 mg/dL (7-18)
[2021-10-05 08:18] LABS: CREATININE 0.9 mg/dL (0.55-1.3)
[2021-10-05 08:20] LABS: BILIRUBIN,TOTAL 0.4 mg/dL (0.2-1); TOT PROT 6.8 g/dl (6.4-8.2)
[2021-10-05 08:25] VITALS: BP 148/87; TEMP 98
[2021-10-05] MEDS ORDERED: SACUBITRIL/VALSARTAN 49 MG-51 MG TABLET PO SCH (10:00)
[2021-10-05] MEDS: ASPIRIN COATED 81 MG TABLET.EC PO SCH (10:09)
[2021-10-05] MEDS: ALLOPURINOL 100 MG TABLET (FP) PO SCH ×2 (10:09→10:14)
[2021-10-05] MEDS: APIXABAN 5 MG TABLET PO SCH (10:09)
[2021-10-05] MEDS: PANTOPRAZOLE 40 MG TABLET PO SCH (10:09)
[2021-10-05] MEDS: AMIODARONE HCL 200 MG TABLET PO SCH (10:09)
[2021-10-05] MEDS ORDERED: PT OWN MED DRAWER 7, Y5N ONE (10:11)
== END 2021-10-05 12:13 | disposition home or self-care (01) ==
LOC: JER 01:04 → INTOOBSV 04:02 → JERBED 04:02 → J4W 10-04 14:05
PROC: 3E033NZ Introduction of Analgesics, Hypnotics, Sedatives into Peripheral Vein, Percutaneous Approach (ICD-10-PCS; principal; 2021-10-03)
PROC: 3E033GC Introduction of Other Therapeutic Substance into Peripheral Vein, Percutaneous Approach (ICD-10-PCS; 2021-10-03)
PROC: 3E0337Z Introduction of Electrolytic and Water Balance Substance into Peripheral Vein, Percutaneous Approach (ICD-10-PCS; 2021-10-03)
DX: I48.92 Unspecified atrial flutter (principal); R79.89 Other specified abnormal findings of blood chemistry; M25.572 Pain in left ankle and joints of left foot; M79.675 Pain in left toe(s); E78.5 Hyperlipidemia, unspecified; H53.40 Unspecified visual field defects; I50.9 Heart failure, unspecified; E66.9 Obesity, unspecified; Z68.30 Body mass index [BMI] 30.0-30.9, adult; R77.8 Other specified abnormalities of plasma proteins; I69.898 Other sequelae of other cerebrovascular disease; M10.9 Gout, unspecified; N28.0 Ischemia and infarction of kidney; G47.30 Sleep apnea, unspecified; I51.89 Other ill-defined heart diseases
CPT/HCPCS: 36415; 71045-TC-FY; 80053; 82550; 82553; 83036; 83735; 84100; 84439; 84443; 84484; 84550; 85025; 85027; 85610; 85651; 85730; 86140; 93005; 93010; 96374; 96375; 99291; C9803; G0378; J0131; U0003; U0005